=== PATIENT | male | born 1955 | race Caucasian/White ===

== ENCOUNTER 2017-09-15 15:54 | Inpatient (IN) | payer MEDICARE ==
[2017-09-15] MEDS ORDERED: MORPHINE SULFATE 5 MG/ML SYRINGE IV STA (16:32)
[2017-09-15] MEDS ORDERED: SODIUM CHLORIDE 0.9% 1,000 ML IV STA (16:32)
--- NOTE | 2017-09-15 17:00 | ED ---
General Adult HPI - General Chief complaint: Abdominal Pain Stated complaint: POSS KIDNEY STONE/INFECTION Time Seen by Provider: 09/15/17 16:05 Source: patient, RN notes reviewed, old records reviewed Mode of arrival: EMS Limitations: no limitations - History of Present Illness Initial comments: 61-year-old male presented for evaluation of bilateral flank pain and testicular pain. Patient has remote history of kidney stones. As well as testicular infection approximately one year ago. patient does report some dysuria and hematuria over the past several days. He is also had some subjective fever and chills. Denies any change in his bowels. Denies nausea or vomiting. Pain in his flanks is dull aching constant pain which is bilateral. Patient denies any current chest pain or shortness of breath. He has had intermittent chest tightness in the past which his primary care physician is aware of. - Related Data Home Medications Medication Instructions Recorded Confirmed Acetaminophen-Codeine 300-30mg 1 tab PO Q8H PRN 09/15/17 09/15/17 [Tylenol #3] Cholecalciferol [Vitamin D3] 1,000 unit PO DAILY 09/15/17 09/15/17 Enalapril Maleate [Vasotec] 10 mg PO DAILY 09/15/17 09/15/17 Furosemide [Lasix] 40 mg PO DAILY 09/15/17 09/15/17 Minoxidil [Loniten] 2.5 mg PO DAILY 09/15/17 09/15/17 Multivitamins, Thera [Multivitamin 1 tab PO DAILY 09/15/17 09/15/17 (formulary)] cloNIDine HCL [Catapres] 0.1 mg PO DAILY 09/15/17 09/15/17 hydrALAZINE HCL [Apresoline] 25 mg PO DAILY 09/15/17 09/15/17 traMADol HCL [Ultram] 50 mg PO Q6H PRN 09/15/17 09/15/17 Allergies Allergy/AdvReac Type Severity Reaction Status Date / Time ANGEL LUIS Inhibitors Allergy Unknown Verified 09/15/17 16:24 naproxen [From Naprosyn] Allergy Unknown Verified 09/15/17 16:24 Penicillins Allergy Unknown Verified 09/15/17 16:24 ibuprofen [From Motrin] AdvReac Unknown Verified 09/15/17 16:24 Review of Systems ROS Statement: Those systems with pertinent positive or pertinent negative responses have been documented in the HPI. ROS Other: All systems not noted in ROS Statement are negative. Past Medical History Past Medical History: Hypertension Additional Past Medical History / Comment(s): kidney stones History of Any Multi-Drug Resistant Organisms: None Reported Past Surgical History: Hernia Repair, Orthopedic Surgery Past Psychological History: No Psychological Hx Reported Smoking Status: Current every day smoker Past Alcohol Use History: None Reported Past Drug Use History: None Reported General Exam Limitations: no limitations General appearance: alert, in no apparent distress Head exam: Present: atraumatic, normocephalic Eye exam: Present: normal appearance, PERRL ENT exam: Present: mucous membranes dry Neck exam: Present: normal inspection. Absent: tenderness, meningismus Respiratory exam: Present: normal lung sounds bilaterally. Absent: respiratory distress, wheezes Cardiovascular Exam: Present: regular rate, normal rhythm GI/Abdominal exam: Present: soft. Absent: distended, tenderness exam: Present: testicular tenderness (left testicle is swollen and tender and erythematous), scrotal swelling, vertical testicular lie Extremities exam: Present: normal inspection, normal capillary refill. Absent: pedal edema Back exam: Present: CVA tenderness (R), CVA tenderness (L) Neurological exam: Present: alert, oriented X3, CN II-XII intact. Absent: motor sensory deficit Psychiatric exam: Present: normal affect, normal mood Skin exam: Present: warm, dry, intact. Absent: cyanosis, diaphoretic Course Vital Signs 09/15/17 09/15/17 09/15/17 16:00 18:27 19:30 Temperature 98.9 F 103.1 F H 102.5 F H Pulse Rate 81 111 H 116 H Respiratory 20 22 20 Rate Blood Pressure 119/69 146/79 165/52 O2 Sat by Pulse 99 96 99 Oximetry EKG Findings - EKG Comments: EKG Findings:: EKG shows sinus tachycardia with PVCs, left atrial enlargement, low voltage QRS, ventricular rate 104, P or 132, castration 100, QTC 473, no signs of acute ischemia or infarction Medical Decision Making - Medical Decision Making 61-year-old male presenting with bilateral flank pain and left testicular pain and swelling. Laboratory studies reveal a large elevation in white blood cell count at 24.7, hemoglobin is normal at 15.2, nitrites the normal limits. Urinalysis shows large leukocyte esterase, 29 RBCs, greater than 182 WBCs with few bacteria.patient received computed tomography scan of the abdomen and pelvis, shows inflammation surrounding the bladder ureters and the collecting portion of the kidney. Ultrasound is obtained of his scrotum which shows left epididymal orchitis. CT also shows calcifications in the coronary arteries. Patient is febrile and tachycardic while emergency department. He is started on Levaquin. Urine culture is pending. Patient will be admitted for continued IV hydration and IV antibiotics. Case discussed with Dr. Tejeda, he will accept admission. Consult placed for infectious disease. Diagnosis: Cystitis, pyelonephritis, orchitis. - Lab Data Result diagrams: 09/15/17 16:40 09/15/17 16:40 Lab Results 09/15/17 09/15/17 09/15/17 Range/Units 16:40 16:40 16:40 WBC 24.7 H (3.8-10.6) k/uL RBC 5.18 (4.30-5.90) m/uL Hgb 15.2 (13.0-17.5) gm/dL Hct 46.5 (39.0-53.0) % MCV 89.8 (80.0-100.0) fL MCH 29.4 (25.0-35.0) pg MCHC 32.7 (31.0-37.0) g/dL RDW 14.6 (11.5-15.5) % Plt Count 309 (150-450) k/uL Neutrophils % 86 % Lymphocytes % 7 % Monocytes % 5 % Eosinophils % 1 % Basophils % 0 % Neutrophils # 21.2 H (1.3-7.7) k/uL Lymphocytes # 1.7 (1.0-4.8) k/uL Monocytes # 1.3 H (0-1.0) k/uL Eosinophils # 0.2 (0-0.7) k/uL Basophils # 0.0 (0-0.2) k/uL PT (9.0-12.0) sec INR (<1.2) APTT (22.0-30.0) sec Sodium 141 (137-145) mmol/L Potassium 3.9 (3.5-5.1) mmol/L Chloride 103 (98-107) mmol/L Carbon Dioxide 26 (22-30) mmol/L Anion Gap 12 mmol/L BUN 8 L (9-20) mg/dL Creatinine 0.83 (0.66-1.25) mg/dL Est GFR (MDRD) Af Amer >60 (>60 ml/min/1.73 sqM) Est GFR (MDRD) Non-Af >60 (>60 ml/min/1.73 sqM) Glucose 115 H (74-99) mg/dL Plasma Lactic Acid Reji 1.9 (0.7-2.0) mmol/L Calcium 9.7 (8.4-10.2) mg/dL Total Bilirubin 1.1 (0.2-1.3) mg/dL AST 20 (17-59) U/L ALT 30 (21-72) U/L Alkaline Phosphatase 85 (38-126) U/L Troponin I (0.000-0.034) ng/mL Total Protein 7.4 (6.3-8.2) g/dL Albumin 4.3 (3.5-5.0) g/dL Amylase 57 (30-110) U/L Lipase 66 (23-300) U/L Urine Color Urine Appearance (Clear) Urine pH (5.0-8.0) Ur Specific [place] (1.001-1.035) Urine Protein (Negative) Urine Glucose (UA) (Negative) Urine Ketones (Negative) Urine Blood (Negative) Urine Nitrite (Negative) Urine Bilirubin (Negative) Urine Urobilinogen (<2.0) mg/dL Ur Leukocyte Esterase (Negative) Urine RBC (0-5) /hpf Urine WBC (0-5) /hpf Urine WBC Clumps (None) /hpf Urine Bacteria (None) /hpf Urine Mucus (None) /hpf Urine Yeast (Budding) (None) /hpf 09/15/17 09/15/17 09/15/17 Range/Units 16:40 16:40 16:40 WBC (3.8-10.6) k/uL RBC (4.30-5.90) m/uL Hgb (13.0-17.5) gm/dL Hct (39.0-53.0) % MCV (80.0-100.0) fL MCH (25.0-35.0) pg MCHC (31.0-37.0) g/dL RDW (11.5-15.5) % Plt Count (150-450) k/uL Neutrophils % % Lymphocytes % % Monocytes % % Eosinophils % % Basophils % % Neutrophils # (1.3-7.7) k/uL Lymphocytes # (1.0-4.8) k/uL Monocytes # (0-1.0) k/uL Eosinophils # (0-0.7) k/uL Basophils # (0-0.2) k/uL PT 10.1 (9.0-12.0) sec INR 1.0 (<1.2) APTT 25.1 (22.0-30.0) sec Sodium (137-145) mmol/L Potassium (3.5-5.1) mmol/L Chloride (98-107) mmol/L Carbon Dioxide (22-30) mmol/L Anion Gap mmol/L BUN (9-20) mg/dL Creatinine (0.66-1.25) mg/dL Est GFR (MDRD) Af Amer (>60 ml/min/1.73 sqM) Est GFR (MDRD) Non-Af (>60 ml/min/1.73 sqM) Glucose (74-99) mg/dL Plasma Lactic Acid Reji (0.7-2.0) mmol/L Calcium (8.4-10.2) mg/dL Total Bilirubin (0.2-1.3) mg/dL AST (17-59) U/L ALT (21-72) U/L Alkaline Phosphatase (38-126) U/L Troponin I 0.014 (0.000-0.034) ng/mL Total Protein (6.3-8.2) g/dL Albumin (3.5-5.0) g/dL Amylase (30-110) U/L Lipase (23-300) U/L Urine Color Yellow Urine Appearance Turbid (Clear) Urine pH 6.5 (5.0-8.0) Ur Specific [place] 1.016 (1.001-1.035) Urine Protein 2+ H (Negative) Urine Glucose (UA) Negative (Negative) Urine Ketones Negative (Negative) Urine Blood Moderate H (Negative) Urine Nitrite Positive (Negative) Urine Bilirubin Negative (Negative) Urine Urobilinogen <2.0 (<2.0) mg/dL Ur Leukocyte Esterase Large H (Negative) Urine RBC 29 H (0-5) /hpf Urine WBC >182 H (0-5) /hpf Urine WBC Clumps Many H (None) /hpf Urine Bacteria Few H (None) /hpf Urine Mucus Many H (None) /hpf Urine Yeast (Budding) Few H (None) /hpf Disposition Clinical Impression: Orchitis, epididymitis, and epididymo-orchitis, Pyelonephritis Disposition: ADMITTED IP TO THIS [facility] Condition: Stable Decision to Admit Reason: Admit from EC Decision Date: 09/15/17 Decision Time: 18:44
[2017-09-15 17:09] LABS: Basophils % (A) 0 %; Eosinophils # (A) 0.2 k/uL (0-0.7); Eosinophils % (A) 1 %; HCT 46.5 % (39.0-53.0); HGB 15.2 gm/dL (13.0-17.5); Lymphocytes # (A) 1.7 k/uL (1.0-4.8); Lymphocytes % (A) 7 %; MCH 29.4 pg (25.0-35.0); MCHC 32.7 g/dL (31.0-37.0); MCV 89.8 fL (80.0-100.0); Mean Platelet Volume 8.3; Monocytes # (A) 1.3 k/uL (0-1.0); Monocytes % (A) 5 %; Neutrophils # (A) 21.2 k/uL (1.3-7.7); Neutrophils % (A) 86 %; Platelet Count 309 k/uL (150-450); RBC 5.18 m/uL (4.30-5.90); RDW 14.6 % (11.5-15.5); WBC 24.7 k/uL (3.8-10.6)
[2017-09-15 17:14] LABS: Appearance,Urine Turbid (Clear); Bacteria,Urine Few /hpf; Bilirubin,Urine Negative (Negative); Blood,Urine Moderate (Negative); Budding Yeast,Urine Few /hpf; Color,Urine Yellow; Glucose,Urine (UA) Negative (Negative); Ketones,Urine Negative (Negative); Leukocyte Esterase,Urine Large (Negative); Mucus,Urine Many /hpf; Nitrite,Urine Positive (Negative); PH, Urine 6.5 (5.0-8.0); Partial Thromboplastin Time 25.1 sec (22.0-30.0); Protein,Urine 2+ (Negative); Prothrombin Time 10.1 sec (9.0-12.0); RBC,Urine 29 /hpf (0-5); Specific Gravity,Urine 1.016 (1.001-1.035); Urobilinogen,Urine <2.0 mg/dL (<2.0); WBC,Urine >182 /hpf (0-5)
[2017-09-15 17:17] LABS: ALT 30 U/L (21-72); AST 20 U/L (17-59); Albumin 4.3 g/dL (3.5-5.0); Alkaline Phosphatase 85 U/L (38-126); Amylase 57 U/L (30-110); Anion Gap 12 mmol/L; Blood Urea Nitrogen 8 mg/dL (9-20); Calcium 9.7 mg/dL (8.4-10.2); Carbon Dioxide 26 mmol/L (22-30); Chloride 103 mmol/L (98-107); Glucose 115 mg/dL (74-99); Lipase 66 U/L (23-300); Potassium 3.9 mmol/L (3.5-5.1); Sodium 141 mmol/L (137-145); Total Bilirubin 1.1 mg/dL (0.2-1.3); Total Protein 7.4 g/dL (6.3-8.2)
[2017-09-15] MEDS ORDERED: LEVOFLOXACIN 500MG-D5W PMX 500 MG in DEXTROSE/WATER 1 100ML.BAG IVPB STA (18:07)
[2017-09-15] MEDS ORDERED: SODIUM CHLORIDE 0.9% 500 ML IV ONE (18:08)
--- NOTE | 2017-09-15 18:14 | CT ---
EXAMINATION TYPE: CT abdomen pelvis wo con DATE OF EXAM: 09/15/2017 COMPARISON: NONE HISTORY: Generalized abdominal pain with left testicular swelling. CT DLP: 915.00 mGycm Automated exposure control for dose reduction was used. TECHNIQUE: Helical acquisition of images was performed from the lung bases through the pelvis. FINDINGS: LUNG BASES: Coronary calcifications are noted. Remainder the visualized thorax is unremarkable. LIVER/GB: No significant abnormality is appreciated. PANCREAS: No significant abnormality is seen. SPLEEN: No significant abnormality is seen. FREE AIR: No free air is visualized RETROPERITONEAL ADENOPATHY: None visualized ADRENALS: No significant abnormality is seen. KIDNEYS: No significant abnormality is seen. There are no calcifications in the kidneys or ureters or urinary bladder. URINARY TRACT: Bladder is nondistended. There is widespread indistinctness at the interface of the b ladder with the perivesical space. There is also indistinctness in the periureteral position of the p erirenal space extending cephalad all the way to the collecting system on the right and on the left s ymmetrically. The remainder of the urinary tract is unremarkable. REPRODUCTIVE ORGANS: The left scrotum is larger than the contralateral right scrotum. The testicles a ppear similar in volume, but the left extratesticular examination shows evidence of hydrocele; if lef t scrotal pain is present then Doppler ultrasound examination can fully characterize. PELVIC ADENOPATHY: None visualized. OSSEOUS STRUCTURES: No significant abnormality is seen. BOWEL: No significant abnormality is seen. IMPRESSION: 1. MILD INFLAMMATORY CHANGES SURROUNDING THE BLADDER AND URETERS AND UPPER COLLECTING SYSTEMS BILATER ALLY AND RATHER SYMMETRICALLY. CLINICAL EXCLUSION OF URINARY TRACT INFECTION IS REQUESTED. 2. Left Hydrocele Evident. 3. Coronary Calcifications Noted.
--- NOTE | 2017-09-15 18:31 | US ---
EXAMINATION TYPE: US scrotum with doppler. Grayscale and color Doppler Duplex imaging performed of yakelin cartwright scrotum. DATE OF EXAM: 09/15/2017 COMPARISON: NONE CLINICAL HISTORY: Pain. edema left side EXAM MEASUREMENTS: TESTICLES: Right Testicle: 4.6 x 2.3 x 3.5 cm Left Testicle: 4.6 x 2.8 x 3.2 cm EPIDIDYMIS HEAD: Right Epididymis: .8 x 1.0 x .8 cm Left Epididymis: 1.0 x 1.2 x .8 cm Doppler performed to assess for testicular vascularity; good bilateral color flow and waveforms are s een. There is no evidence of testicular torsion. Presence of hydroceles: Yes left side; anechoic; with septations seen Presence of varicoceles: no Septated fluid and increased vascularity in left testicle and epididymis. Suggestive of epididymo orc hitis. IMPRESSION: FINDINGS CONSISTENT WITH LEFT EPIDIDYMAL-ORCHITIS, WITH SMALL PARTIALLY SEPTATED HYDROCELE..
[2017-09-15] MEDS ORDERED: ACETAMINOPHEN TAB 500 MG TAB PO STA (18:33)
[2017-09-15] MEDS ORDERED: ACETAMINOPHEN IV (For NPO) 1,000 MG in EMPTY BAG 1 BAG IVPB ONE (18:39)
[2017-09-15] MEDS ORDERED: MORPHINE SULFATE 5 MG/ML SYRINGE IVP STA (18:45)
[2017-09-15] MEDS ORDERED: NALOXONE 0.4 MG/ML 1 ML VIAL IV PRN (18:56)
[2017-09-15] MEDS: NICOTINE 21MG/24HR PATCH TRANSDERM SCH (22:04)
[2017-09-15] MEDS: ACETAMINOPHEN TAB 325 MG TAB PO PRN (22:09)
[2017-09-16] MEDS: HYDROmorphone 2 MG/ML 1 ML SYRINGE IVP PRN ×4 (01:08→20:13)
[2017-09-16] MEDS: cloNIDine HCL 0.1 MG TAB PO SCH (07:56)
[2017-09-16] MEDS: NICOTINE 21MG/24HR PATCH TRANSDERM SCH (07:56)
[2017-09-16] MEDS: FUROSEMIDE 40 MG TAB PO SCH (08:06)
[2017-09-16 09:23] LABS: ALT 27 U/L (21-72); AST 17 U/L (17-59); Albumin 3.5 g/dL (3.5-5.0); Alkaline Phosphatase 74 U/L (38-126); Anion Gap 10 mmol/L; Blood Urea Nitrogen 10 mg/dL (9-20); Calcium 9.2 mg/dL (8.4-10.2); Carbon Dioxide 23 mmol/L (22-30); Chloride 106 mmol/L (98-107); Glucose 105 mg/dL (74-99); Magnesium 2.1 mg/dL (1.6-2.3); Potassium 3.9 mmol/L (3.5-5.1); Sodium 139 mmol/L (137-145); Total Bilirubin 1.2 mg/dL (0.2-1.3); Total Protein 6.4 g/dL (6.3-8.2)
[2017-09-16 09:36] LABS: Basophils # (A) 0.1 k/uL (0-0.2); Basophils % (A) 0 %; Eosinophils # (A) 0.1 k/uL (0-0.7); Eosinophils % (A) 0 %; HCT 40.5 % (39.0-53.0); HGB 13.4 gm/dL (13.0-17.5); Lymphocytes # (A) 2.1 k/uL (1.0-4.8); Lymphocytes % (A) 8 %; MCH 29.8 pg (25.0-35.0); MCV 90.4 fL (80.0-100.0); Mean Platelet Volume 8.4; Monocytes # (A) 1.5 k/uL (0-1.0); Monocytes % (A) 6 %; Neutrophils # (A) 22.5 k/uL (1.3-7.7); Neutrophils % (A) 85 %; Platelet Count 287 k/uL (150-450); RBC 4.48 m/uL (4.30-5.90)
[2017-09-16 10:11] LABS: WBC 26.4 k/uL (3.8-10.6)
[2017-09-16] MEDS ORDERED: Acetaminophen-Codeine 300-30mg TAB PO PRN (10:52)
[2017-09-16] MEDS ORDERED: traMADol 50 MG TAB PO PRN (10:52)
--- NOTE | 2017-09-16 12:19 | P.CONS ---
History of Present Illness - Reason for Consult Consult date: 09/16/17 Sepsis, pyelonephritis, orchitis - History of Present Illness This is a 61-year-old male patient gives history that he had developed dysuria, hematuria and pain in his testicles along with decreased appetite, fever, chills and rigors. He gives history that he had swollen testicles last summer and he was treated by his primary care physician and was placed on initially penicillin which she was not able to tolerate, a second antibiotic which she was not able to tolerate and ended up with 2 courses of ciprofloxacin. Patient was not hospitalized at that time. Patient came into [facility] emergency center and found to have signs of sepsis with fever, tachycardia, leukocytosis. Creatinine was 0.83. Urinalysis was turbid, blood moderate, leukoesterase large, RBCs 29, WBC is greater than 182, WBC clumps many, bacteria few, yeast few. Urine culture is in process and blood culture is status received. Patient was started on Levaquin and [facility]. He states that blood and dysuria are slightly better and he was concerned that he passed a stone. He does have remote history of kidney stones. Ultrasound of the scrotum revealed left epididymal orchitis with small partially septated hydrocele. CAT scan revealed mild inflammatory changes surrounding the bladder and ureters and upper collection systems bilaterally and symmetrically. Clinical exclusion of urinary tract infection is requested. Left hydrocele evident. Coronary calcification noted. Review of Systems All systems: negative Constitutional: Reports anorexia, Reports chills, Reports fatigue, Reports fever , Reports poor appetite, Reports sweats Eyes: denies blurred vision, denies pain Ears, nose, mouth and throat: Denies dental pain, Denies headache, Denies mouth pain, Denies sore throat Cardiovascular: Denies chest pain, Denies decreased exercise tolerance, Denies dyspnea on exertion, Denies edema, Denies leg edema, Denies shortness of breath Respiratory: Denies congestion, Denies cough, Denies cough with sputum, Denies dyspnea, Denies excessive sputum, Denies hemoptysis, Denies home oxygen, Denies wheezing Gastrointestinal: Denies abdominal pain, Denies diarrhea, Denies nausea, Denies vomiting Genitourinary: Reports dysuria, Reports flank pain, Reports hematuria, Reports kidney stones, Reports testicular pain Musculoskeletal: Denies myalgias Integumentary: Denies pruritus, Denies rash Neurological: Denies numbness, Denies weakness Psychiatric: Denies anxiety, Denies depression Endocrine: Denies fatigue, Denies weight change Past Medical History Past Medical History: Hypertension Additional Past Medical History / Comment(s): kidney stones History of Any Multi-Drug Resistant Organisms: None Reported Past Surgical History: Hernia Repair, Orthopedic Surgery Additional Past Surgical History / Comment(s): neck surgery x3 Past Anesthesia/Blood Transfusion Reactions: No Reported Reaction Past Psychological History: No Psychological Hx Reported Smoking Status: Current every day smoker Past Alcohol Use History: None Reported Additional Past Alcohol Use History / Comment(s): Patient is a smoker of 2-3 packs per day for 40 years. He denies any recent marijuana, medical marijuana or street drug use. He denies any alcohol use or abuse. He is currently living alone. He is on disability from a neck problems. 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 Past Drug Use History: None Reported - Past Family History Mother Family Medical History: Congestive Heart Failure (CHF) Medications and Allergies Home Medications Medication Instructions Recorded Confirmed Type Acetaminophen-Codeine 300-30mg 1 tab PO Q8H PRN 09/15/17 09/15/17 History [Tylenol #3] Cholecalciferol [Vitamin D3] 1,000 unit PO DAILY 09/15/17 09/15/17 History Enalapril Maleate [Vasotec] 10 mg PO DAILY 09/15/17 09/15/17 History Furosemide [Lasix] 40 mg PO DAILY 09/15/17 09/15/17 History Minoxidil [Loniten] 2.5 mg PO DAILY 09/15/17 09/15/17 History Multivitamins, Thera [Multivitamin 1 tab PO DAILY 09/15/17 09/15/17 History (formulary)] cloNIDine HCL [Catapres] 0.1 mg PO DAILY 09/15/17 09/15/17 History hydrALAZINE HCL [Apresoline] 25 mg PO DAILY 09/15/17 09/15/17 History traMADol HCL [Ultram] 50 mg PO Q6H PRN 09/15/17 09/15/17 History Allergies Allergy/AdvReac Type Severity Reaction Status Date / Time ANGEL LUIS Inhibitors Allergy Unknown Verified 09/15/17 16:24 naproxen [From Naprosyn] Allergy Unknown Verified 09/15/17 16:24 Penicillins Allergy Unknown Verified 09/15/17 16:24 ibuprofen [From Motrin] AdvReac Unknown Verified 09/15/17 16:24 Physical Exam Vitals: Vital Signs Temp Pulse Pulse Resp BP BP Pulse Ox 09/16/17 07:00 97.7 F 88 18 116/76 97 09/15/17 23:00 101.6 F H 89 16 115/60 93 L 09/15/17 22:09 101.6 F H 09/15/17 20:10 97.8 F 90 16 114/62 94 L 09/15/17 19:30 102.5 F H 116 H 20 165/52 99 09/15/17 18:27 103.1 F H 111 H 22 146/79 96 09/15/17 16:00 98.9 F 81 20 119/69 99 Intake and Output 09/15/17 09/16/17 09/16/17 22:59 06:59 14:59 Output Total 100 Balance -100 Output: Urine 100 Other: Voiding Method Incontinent # Voids 1 3 Weight 78.925 kg Gen: This is a 61-year-old male patient who looks older than stated age. He is sitting up at the edge of the bed and eating breakfast and appears to be in no acute distress. HEENT: Head is atraumatic, normocephalic. Pupils equal, round. Sclerae is anicteric. Conjunctiva pink. Mucous membranes of the mouth are moist. Patient is near edentulous with only a few teeth. No thrush noted. NECK: Supple. No JVD. No lymphadenopathy. No thyromegaly. LUNGS: Scattered rhonchi. No wheezes. No intercostal retractions. HEART: Regular rate and rhythm. No murmur. ABDOMEN: Soft. Bowel sounds are present. No masses. No tenderness. EXTREMITIES: Trace bilateral pedal edema. No calf tenderness. Dorsalis pedis + 2 bilaterally. NEUROLOGICAL: Patient is awake, alert and oriented x3. Cranial nerves 2 through 12 are grossly intact. Results Results: Laboratory Results WBC 26.4 k/uL (3.8-10.6) H* 09/16/17 08:32 RBC 4.48 m/uL (4.30-5.90) 09/16/17 08:32 Hgb 13.4 gm/dL (13.0-17.5) 09/16/17 08:32 Hct 40.5 % (39.0-53.0) 09/16/17 08:32 MCV 90.4 fL (80.0-100.0) 09/16/17 08:32 MCH 29.8 pg (25.0-35.0) 09/16/17 08:32 MCHC 33.0 g/dL (31.0-37.0) 09/16/17 08:32 RDW 13.0 % (11.5-15.5) 09/16/17 08:32 Plt Count 287 k/uL (150-450) 09/16/17 08:32 Neutrophils % 85 % 09/16/17 08:32 Lymphocytes % 8 % 09/16/17 08:32 Monocytes % 6 % 09/16/17 08:32 Eosinophils % 0 % 09/16/17 08:32 Basophils % 0 % 09/16/17 08:32 Neutrophils # 22.5 k/uL (1.3-7.7) H 09/16/17 08:32 Lymphocytes # 2.1 k/uL (1.0-4.8) 09/16/17 08:32 Monocytes # 1.5 k/uL (0-1.0) H 09/16/17 08:32 Eosinophils # 0.1 k/uL (0-0.7) 09/16/17 08:32 Basophils # 0.1 k/uL (0-0.2) 09/16/17 08:32 PT 10.1 sec (9.0-12.0) 09/15/17 16:40 INR 1.0 (<1.2) 09/15/17 16:40 APTT 25.1 sec (22.0-30.0) 09/15/17 16:40 Sodium 139 mmol/L (137-145) 09/16/17 08:32 Potassium 3.9 mmol/L (3.5-5.1) 09/16/17 08:32 Chloride 106 mmol/L (98-107) 09/16/17 08:32 Carbon Dioxide 23 mmol/L (22-30) 09/16/17 08:32 Anion Gap 10 mmol/L 09/16/17 08:32 BUN 10 mg/dL (9-20) 09/16/17 08:32 Creatinine 0.71 mg/dL (0.66-1.25) 09/16/17 08:32 Est GFR (MDRD) Af Amer >60 (>60 ml/min/1.73 sqM) 09/16/17 08:32 Est GFR (MDRD) Non-Af >60 (>60 ml/min/1.73 sqM) 09/16/17 08:32 Glucose 105 mg/dL (74-99) H 09/16/17 08:32 Plasma Lactic Acid Reji 1.5 mmol/L (0.7-2.0) 09/15/17 20:51 Calcium 9.2 mg/dL (8.4-10.2) 09/16/17 08:32 Magnesium 2.1 mg/dL (1.6-2.3) 09/16/17 08:32 Total Bilirubin 1.2 mg/dL (0.2-1.3) 09/16/17 08:32 AST 17 U/L (17-59) 09/16/17 08:32 ALT 27 U/L (21-72) 09/16/17 08:32 Alkaline Phosphatase 74 U/L (38-126) 09/16/17 08:32 Troponin I 0.014 ng/mL (0.000-0.034) 09/15/17 16:40 Total Protein 6.4 g/dL (6.3-8.2) 09/16/17 08:32 Albumin 3.5 g/dL (3.5-5.0) 09/16/17 08:32 Amylase 57 U/L (30-110) 09/15/17 16:40 Lipase 66 U/L (23-300) 09/15/17 16:40 Urine Color Yellow 09/15/17 16:40 Urine Appearance Turbid (Clear) 09/15/17 16:40 Urine pH 6.5 (5.0-8.0) 09/15/17 16:40 Ur Specific [place] 1.016 (1.001-1.035) 09/15/17 16:40 Urine Protein 2+ (Negative) H 09/15/17 16:40 Urine Glucose (UA) Negative (Negative) 09/15/17 16:40 Urine Ketones Negative (Negative) 09/15/17 16:40 Urine Blood Moderate (Negative) H 09/15/17 16:40 Urine Nitrite Positive (Negative) 09/15/17 16:40 Urine Bilirubin Negative (Negative) 09/15/17 16:40 Urine Urobilinogen <2.0 mg/dL (<2.0) 09/15/17 16:40 Ur Leukocyte Esterase Large (Negative) H 09/15/17 16:40 Urine RBC 29 /hpf (0-5) H 09/15/17 16:40 Urine WBC >182 /hpf (0-5) H 09/15/17 16:40 Urine WBC Clumps Many /hpf (None) H 09/15/17 16:40 Urine Bacteria Few /hpf (None) H 09/15/17 16:40 Urine Mucus Many /hpf (None) H 09/15/17 16:40 Urine Yeast (Budding) Few /hpf (None) H 09/15/17 16:40 CBC & Chem 7: 09/16/17 08:32 09/16/17 08:32 Labs: Abnormal Lab Results - Last 24 Hours (Table) 09/15/17 09/15/17 09/15/17 Range/Units 16:40 16:40 16:40 WBC 24.7 H (3.8-10.6) k/uL Neutrophils # 21.2 H (1.3-7.7) k/uL Monocytes # 1.3 H (0-1.0) k/uL BUN 8 L (9-20) mg/dL Glucose 115 H (74-99) mg/dL Urine Protein 2+ H (Negative) Urine Blood Moderate H (Negative) Ur Leukocyte Esterase Large H (Negative) Urine RBC 29 H (0-5) /hpf Urine WBC >182 H (0-5) /hpf Urine WBC Clumps Many H (None) /hpf Urine Bacteria Few H (None) /hpf Urine Mucus Many H (None) /hpf Urine Yeast (Budding) Few H (None) /hpf Microbiology - Last 24 Hours (Table) 09/15/17 16:40 Urine Culture - Preliminary Urine,Clean Catch Assessment and Plan Plan: This is a 61-year-old male who presented to the hospital with sepsis secondary to left epididymal orchitis. He is currently on Levaquin which will be switched to Rocephin. Urine culture is in progress and blood cultures status received. Continue supportive care. Further recommendations as patient progresses. The above dictated assessment and findings were discussed with Dr. Harper. The impression and plan of care have been directed as dictated. Margie Laguna nurse practitioner acting as scribe for Dr. Harper.
[2017-09-16] MEDS: cefTRIAXone IN SWFI 2,000 MG/20 ML SYRINGE IVP SCH (12:22)
[2017-09-16] MEDS: SODIUM CHLORIDE 0.9% 1,000 ML IV SCH ×2 (12:23→15:49)
[2017-09-16] MEDS: KETOROLAC 30 MG/ML 1 ML VIAL IVP SCH ×2 (15:48→20:11)
--- NOTE | 2017-09-16 15:52 | HP ---
HISTORY AND PHYSICAL CHIEF COMPLAINT: Fever, shaking, chills, and diaphoresis. HISTORY OF PRESENT ILLNESS: This is the first known admission for this 61-year-old, white male who has hypertension and is a heavy smoker. Going back to May 03, 2017 he has been being treated for pain and swelling in the left testicle. It was thought this was epididymitis and was treated with anti-inflammatories and antibiotics. His initial treatment was Augmentin. He had some improvement in the pain and swelling, but not complete resolution. He came back in the office on May 13 and at that time, was on Cipro from the emergency room. He still is having a lot of swelling and discomfort and very little improvement. He was seen next on May 24 and stated that he had stopped the antibiotics because it gave him stomach pain and diarrhea. Somewhere along that stretch he also received Keflex 500 mg 4 times a day. When he was in on May 24 he requested to go back on Cipro and this was restarted. On May 31 he presented and was having some improvement and was afebrile. It was felt that his epididymitis was improving and he was asked to return in a month. The next time he was seen was on July 06 and was doing well without any complaints, fever, chills, dysuria, etc. On the day of his admission, he suddenly had fever, chills, diaphoresis and increased swelling in the left hemiscrotum with a discomfort in the lower abdomen as well. He came to the emergency room with shaking chills and had white count 24,000. His lactic acid was just below 2. He had no delirium. CT suggested that there was an epididymitis, or abscess in the left hemiscrotum and some edema around the bladder and ureters as well. He was admitted. REVIEW OF SYSTEMS: He has had no confusion, cough, chest pain, orthopnea, PND, nausea vomiting, hematemesis, melena, hematochezia, jaundice, hematuria, history of renal disease, stones, etc. Past medical history, family history, and personal and social history reveal that he is ALLERGIC TO PENICILLIN, ANGEL LUIS inhibitors, NSAIDs and prednisone. He is on [place] 5 q6h p.r.n., Lasix 40 once a day, Ultram 50 q.6h, clonidine 0.1 once a day, hydralazine 25 mg once a day, minoxidil 2.5 mg once a day, enalapril 10 mg once a day. Surgically he has had hemorrhoidectomy, resection of hydrocele, neck procedure, procedure for treatment for left shoulder pain and kidney stones. He has had a herniorrhaphy and a, hydrocelectomy and surgery on his neck for fusion. He smokes heavily up to around 3 packs a day. PHYSICAL EXAM: Blood pressure 170/90 with a pulse of 100, respirations 16 and temperature 101. In general he appeared to be acutely ill. Skin was hot and dry. Lymph nodes not enlarged. Head, ears, eyes, nose, mouth, and throat were normal. NECK: Supple. Chest is clear. Cardiac exam demonstrates sinus tachycardia and there are no murmurs or extra sounds. The abdomen is slightly tender in the lower aspects and on exam general demonstrated a swelling and tenderness in the left hemiscrotum. EXTREMITIES: Normal. Neurological is intact. IMPRESSION: 1. Left epididymitis and orchitis with possible abscess. 2. Early sepsis. 3. Chronic obstructive pulmonary disease. PLAN: 1. Bed rest. 2. IV fluids. 3. Appropriate cultures. 4. IV antibiotics. 5. Consult Infectious Disease and Urology. ADDENDUM: He was asked to leave the urine for culture when he was initially treated for the epididymitis, but none was left. No cultures were done when he was an outpatient. MMODL / IJN: [id number] /
--- NOTE | 2017-09-16 16:49 | PN ---
PROGRESS NOTE DATE OF SERVICE: 09/16/2017 CHIEF COMPLAINT: Urinary tract infection and probable abscess with left epididymitis. HISTORY OF PRESENT ILLNESS: This gentleman is doing a little bit better than when he came in, but he is still having a lot of pain and swelling. PHYSICAL EXAMINATION: Temperature is down. Chest is clear. Cardiac exam is normal. The abdomen is soft, nontender. IMPRESSION: 1. Septicemia. 2. Left-sided epididymitis. 3. Chronic obstructive pulmonary disease. 4. Hypertension. PLAN: 1. Continue with IV fluids and antibiotics. 2. Obtain appropriate cultures. 3. Consult with Urology and Infectious Disease. MMODL / IJN: [id number] /
[2017-09-16] MEDS ORDERED: LEVOFLOXACIN 750MG-D5W PMX 750 MG in DEXTROSE/WATER 1 150ML.BAG IVPB SCH (19:00)
--- NOTE | 2017-09-16 19:06 | P.GSCN ---
History of Present Illness Consult date: 09/16/17 Reason for Consult: Left epididymitis and sepsis History of present illness: The patient is a 61-year-old male admitted through the emergency room yesterday for evaluation of left testicular and epididymal pain and swelling and a fever. The patient says that his problem actually began approximately 2 weeks ago when he first had some intermittent bilateral testicular discomfort. His right testicular discomfort resolved. He says that he developed terminal dysuria associated with a fever chills and left testicular discomfort on 09/11. The swelling continued and due to his fever he came to the emergency room for evaluation. He was noted have a white blood count of 24,700. Urinalysis suggested a urinary tract infection and the patient has been started on antibiotics. Computed tomography scan of the abdomen and pelvis showed some questionable induration in the retroperitoneum adjacent to the ureters but no definite evidence of hydronephrosis. Scrotal ultrasound showed increased vascularity of the left epididymis consistent with acute epididymitis. The patient says that he feels much better today since he has been started on antibiotics. He was initially started on Levaquin and then switched to ceftriaxone. The patient said that he was treated for left epididymitis during April and May 2017. According to Dr. Tejeda's note he was treated with both Augmentin and Cipro. It's unclear whether a urine culture was obtained at that time. Patient has no other history of urinary tract infection. He says he voids frequently after he takes his Lasix in the morning and then every 2-4 hours. He usually voids once or twice at night but says that this has been present for years. Of possible significance, the patient says that after he takes his Lasix he has such urgency to void but he often squeezes the end of his penis to prevent voiding when that happens his urethra distends with urine. Review of Systems - Constitutional Reports chills, Reports fever - Cardiovascular Denies chest pain, Denies shortness of breath - Respiratory Denies cough - Gastrointestinal Denies abdominal pain - Genitourinary Reports as per HPI Past Medical History Past Medical History: COPD, Hypertension Additional Past Medical History / Comment(s): kidney stones History of Any Multi-Drug Resistant Organisms: None Reported Past Surgical History: Orthopedic Surgery Additional Past Surgical History / Comment(s): neck surgery x3, right hydrocele repair Past Anesthesia/Blood Transfusion Reactions: No Reported Reaction Past Psychological History: No Psychological Hx Reported Smoking Status: Current every day smoker Past Alcohol Use History: None Reported Additional Past Alcohol Use History / Comment(s): Patient is a smoker of 2-3 packs per day for 40 years. He denies any recent marijuana, medical marijuana or street drug use. He denies any alcohol use or abuse. He is currently living alone. He is on disability from a neck problems. 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 Past Drug Use History: None Reported - Past Family History Mother Family Medical History: Congestive Heart Failure (CHF) Medications and Allergies Home Medications Medication Instructions Recorded Confirmed Type Acetaminophen-Codeine 300-30mg 1 tab PO Q8H PRN 09/15/17 09/15/17 History [Tylenol #3] Cholecalciferol [Vitamin D3] 1,000 unit PO DAILY 09/15/17 09/15/17 History Enalapril Maleate [Vasotec] 10 mg PO DAILY 09/15/17 09/15/17 History Furosemide [Lasix] 40 mg PO DAILY 09/15/17 09/15/17 History Minoxidil [Loniten] 2.5 mg PO DAILY 09/15/17 09/15/17 History Multivitamins, Thera [Multivitamin 1 tab PO DAILY 09/15/17 09/15/17 History (formulary)] cloNIDine HCL [Catapres] 0.1 mg PO DAILY 09/15/17 09/15/17 History hydrALAZINE HCL [Apresoline] 25 mg PO DAILY 09/15/17 09/15/17 History traMADol HCL [Ultram] 50 mg PO Q6H PRN 09/15/17 09/15/17 History Allergies Allergy/AdvReac Type Severity Reaction Status Date / Time ANGEL LUIS Inhibitors Allergy Unknown Verified 09/15/17 16:24 naproxen [From Naprosyn] Allergy Unknown Verified 09/15/17 16:24 Penicillins Allergy Unknown Verified 09/15/17 16:24 ibuprofen [From Motrin] AdvReac Unknown Verified 09/15/17 16:24 Surgical - Exam Vital Signs Temp Pulse Resp BP Pulse Ox 98.9 F 81 20 119/69 99 09/15/17 16:00 09/15/17 16:00 09/15/17 16:00 09/15/17 16:00 09/15/17 16:00 - General well developed, well nourished, no distress - Neck no lymphadectomy - Respiratory normal respiratory effort - Abdomen Abdomen: soft, non tender Hernia: no inguinal - Genitourinary normal penis with no external lesions, other (The right testicle and epididymis are normal. The left testicle and epididymis appeared indurated and are moderately tender. There is slight scrotal edema overlying the left testicle but no evidence of fluctuance or skin discoloration.) - Neurologic no memory loss - Psychiatric memory intact Results - Labs 09/16/17 08:32 09/16/17 08:32 Abnormal Lab Results - Last 24 Hours (Table) 09/16/17 09/16/17 Range/Units 08:32 08:32 WBC 26.4 H* (3.8-10.6) k/uL Neutrophils # 22.5 H (1.3-7.7) k/uL Monocytes # 1.5 H (0-1.0) k/uL Glucose 105 H (74-99) mg/dL Microbiology - Last 24 Hours (Table) 09/16/17 12:00 Urine Culture - Preliminary Urine,Voided 09/15/17 16:40 Urine Culture - Preliminary Urine,Clean Catch Diabetes panel 09/16/17 Range/Units 08:32 Sodium 139 (137-145) mmol/L Potassium 3.9 (3.5-5.1) mmol/L Chloride 106 (98-107) mmol/L Carbon Dioxide 23 (22-30) mmol/L BUN 10 (9-20) mg/dL Creatinine 0.71 (0.66-1.25) mg/dL Glucose 105 H (74-99) mg/dL Calcium 9.2 (8.4-10.2) mg/dL AST 17 (17-59) U/L ALT 27 (21-72) U/L Alkaline Phosphatase 74 (38-126) U/L Total Protein 6.4 (6.3-8.2) g/dL Albumin 3.5 (3.5-5.0) g/dL Calcium panel 09/16/17 Range/Units 08:32 Calcium 9.2 (8.4-10.2) mg/dL Albumin 3.5 (3.5-5.0) g/dL Pituitary panel 09/16/17 Range/Units 08:32 Sodium 139 (137-145) mmol/L Potassium 3.9 (3.5-5.1) mmol/L Chloride 106 (98-107) mmol/L Carbon Dioxide 23 (22-30) mmol/L BUN 10 (9-20) mg/dL Creatinine 0.71 (0.66-1.25) mg/dL Glucose 105 H (74-99) mg/dL Calcium 9.2 (8.4-10.2) mg/dL Adrenal panel 09/16/17 Range/Units 08:32 Sodium 139 (137-145) mmol/L Potassium 3.9 (3.5-5.1) mmol/L Chloride 106 (98-107) mmol/L Carbon Dioxide 23 (22-30) mmol/L BUN 10 (9-20) mg/dL Creatinine 0.71 (0.66-1.25) mg/dL Glucose 105 H (74-99) mg/dL Calcium 9.2 (8.4-10.2) mg/dL Total Bilirubin 1.2 (0.2-1.3) mg/dL AST 17 (17-59) U/L ALT 27 (21-72) U/L Alkaline Phosphatase 74 (38-126) U/L Total Protein 6.4 (6.3-8.2) g/dL Albumin 3.5 (3.5-5.0) g/dL Assessment and Plan (1) Orchitis, epididymitis, and epididymo-orchitis Narrative/Plan: The patient appears to have acute left epididymal orchitis. His urinalysis also suggested a urinary tract infection. It is possible that the patient has chronic prostatitis which could be the cause of his relapsing infections. It's also possible that preventing voiding when he gets a strong urge to void after he takes his Lasix by squeezing his glans causes urine to flow retrograde from the prostatic region back towards the left epididymis. I personally reviewed the patient's computed tomography scan and do not feel that the abnormality noted in the retroperitoneum is significant. The patient does not have clinical evidence of acute pyelonephritis. The patient has improved since he has been started on Levaquin and switched to ceftriaxone and is currently afebrile. I believe that he could be treated as an outpatient with oral Levaquin and should be treated for 2 weeks. He has seen Dr. Proctor in the past and should follow up with him in 2 or 3 weeks. Current Visit: Yes Status: Acute Code(s): N45.2 - ORCHITIS; N45.1 - EPIDIDYMITIS; N45.3 - EPIDIDYMO-ORCHITIS SNOMED Code(s): 265264694
--- NOTE | 2017-09-16 23:29 | P.CON ---
Consult Note - . Consult date: 09/16/17 Assessment/Plan:: This is a 61-year-old male patient gives history that he had developed dysuria, hematuria and pain in his testicles along with decreased appetite, fever, chills and rigors. He gives history that he had swollen testicles last summer and he was treated by his primary care physician and was placed on initially penicillin which she was not able to tolerate, a second antibiotic which she was not able to tolerate and ended up with 2 courses of ciprofloxacin. Patient was not hospitalized at that time. Patient came into [facility] emergency center and found to have signs of sepsis with fever, tachycardia, leukocytosis. Creatinine was 0.83. Urinalysis was turbid, blood moderate, leukoesterase large, RBCs 29, WBC is greater than 182, WBC clumps many, bacteria few, yeast few. Urine culture is in process and blood culture is status received. Patient was started on Levaquin and admitted to the [facility] floor. He states that blood and dysuria are slightly better and he was concerned that he passed a stone. He does have remote history of kidney stones. Ultrasound of the scrotum revealed left epididymal orchitis with small partially septated hydrocele. CAT scan revealed mild inflammatory changes surrounding the bladder and ureters and upper collection systems bilaterally and symmetrically. Clinical exclusion of urinary tract infection is requested. Left hydrocele evident. Coronary calcification noted. Please see the consult note as dictated by nurse practitioner Mrs. Margie Laguna. Pleasant gentleman has some difficulties with testicular swelling through the summer. Had multiple courses of antibiotic therapy. Again is now had significant swelling. Patient does have evidence of enlarged prostate and symptoms of BPH. It is likely that he is getting infection into the epididymis related to this issue. For antibiotic therapy ceftriaxone will be utilized with concerns to quinolone resistant infection. Elevation and cooling of the scrotum is helpful. Cultures in process will help direct antibiotic therapy at discharge. Patient feels just a better since coming into hospital. Tamsulosin will be added. Computed tomography scan is reviewed without evidence of acute pyelonephritis. I agree with evaluation, assessment and plan as dictated by nurse practitioner Mrs. Margie Laguna.
[2017-09-17] MEDS: ACETAMINOPHEN TAB 325 MG TAB PO PRN ×2 (00:03→16:51)
[2017-09-17] MEDS: KETOROLAC 30 MG/ML 1 ML VIAL IVP SCH ×5 (00:03→23:51)
[2017-09-17] MEDS: SODIUM CHLORIDE 0.9% 1,000 ML IV SCH ×6 (00:04→21:25)
[2017-09-17] MEDS: cloNIDine HCL 0.1 MG TAB PO SCH (08:25)
[2017-09-17] MEDS: hydrALAZINE HCL 25 MG TAB PO SCH (08:25)
[2017-09-17] MEDS: TAMSULOSIN 0.4 MG CAP.ER.24H PO SCH (08:25)
[2017-09-17] MEDS: LISINOPRIL 20 MG TAB PO SCH (08:25)
[2017-09-17] MEDS: MINOXIDIL 2.5 MG TAB PO SCH (08:25)
[2017-09-17] MEDS: FUROSEMIDE 40 MG TAB PO SCH (08:25)
[2017-09-17] MEDS: NICOTINE 21MG/24HR PATCH TRANSDERM SCH (08:25)
[2017-09-17] MEDS: HYDROmorphone 2 MG/ML 1 ML SYRINGE IVP PRN (10:23)
[2017-09-17] MEDS: cefTRIAXone IN SWFI 2,000 MG/20 ML SYRINGE IVP SCH (13:26)
--- NOTE | 2017-09-17 16:35 | PN ---
PROGRESS NOTE DATE OF SERVICE: 09/17/2017 CHIEF COMPLAINT: Epididymitis and orchitis with UTI. HISTORY OF PRESENT ILLNESS: This gentleman is still having trouble with night sweats, but his temperature is coming down slowly. He has been seen by Urology and Infectious Disease. Antibiotics were changed he is doing a little bit better. PHYSICAL EXAMINATION: He is awake and alert. Vitals signs are normal. His chest is clear. Cardiac exam is normal. The abdomen is soft, nontender. IMPRESSION: Epididymitis and orchitis with pelvic floor cellulitis and benign prostatic hypertrophy. PLAN: No change in program. Continue to monitor his temperature and vital signs. He is growing out Gram-negative organisms. MMODL / IJN: [id number] /
[2017-09-17] MEDS: HYDROmorphone 0.5 MG/0.5 ML SYRINGE IVP PRN (21:25)
--- NOTE | 2017-09-17 22:58 | P.PN ---
Subjective Progress Note Date: 09/17/17 Principal diagnosis: Sepsis, epididymoorchitis This is a 61-year-old male patient gives history that he had developed dysuria, hematuria and pain in his testicles along with decreased appetite, fever, chills and rigors. He gives history that he had swollen testicles last summer and he was treated by his primary care physician and was placed on initially penicillin which she was not able to tolerate, a second antibiotic which she was not able to tolerate and ended up with 2 courses of ciprofloxacin. Patient was not hospitalized at that time. Patient came into [facility] emergency center and found to have signs of sepsis with fever, tachycardia, leukocytosis. Creatinine was 0.83. Urinalysis was turbid, blood moderate, leukoesterase large, RBCs 29, WBC is greater than 182, WBC clumps many, bacteria few, yeast few. Urine culture is in process and blood culture is status received. Patient was started on Levaquin and [facility] He states that blood and dysuria are slightly better and he was concerned that he passed a stone. He does have remote history of kidney stones. Ultrasound of the scrotum revealed left epididymal orchitis with small partially septated hydrocele. CAT scan revealed mild inflammatory changes surrounding the bladder and ureters and upper collection systems bilaterally and symmetrically. Clinical exclusion of urinary tract infection is requested. Left hydrocele evident. Coronary calcification noted. Patient is feeling slightly better today. Still is having significant swelling to the left testicle. Still having some fevers. But less chills and rigors. Appetite is improving. Objective - Vital Signs Vital signs: Vital Signs Temp 100.1 F H 09/17/17 16:47 Pulse 87 09/17/17 15:00 Resp 20 09/17/17 15:00 BP 114/71 09/17/17 15:00 Pulse Ox 96 09/17/17 15:00 Intake & Output 09/17/17 09/17/17 09/18/17 06:59 18:59 06:59 Intake Total 400 Output Total 850 800 Balance -850 -400 Intake: Oral 400 Output: Urine 850 800 Other: Voiding Method Urinal Urinal - Exam Gen: This is a 61-year-old male patient who looks older than stated age. Relates to bit more discomfort this evening possibly due to some pinching that occurred to the scrotum when he took a walk. HEENT: Head is atraumatic, normocephalic. Pupils equal, round. Sclerae is anicteric. Conjunctiva pink. Mucous membranes of the mouth are moist. Patient is near edentulous with only a few teeth. No thrush noted. NECK: Supple. No JVD. No lymphadenopathy. No thyromegaly. LUNGS: Scattered rhonchi. No wheezes. No intercostal retractions. HEART: Regular rate and rhythm. No murmur. ABDOMEN: Soft. Bowel sounds are present. No masses. No tenderness. EXTREMITIES: Trace bilateral pedal edema. No calf tenderness. Dorsalis pedis + 2 bilaterally. NEUROLOGICAL: Patient is awake, alert and oriented x3. Scrotum is quite swollen. Less so than yesterday. There is less erythema. The left testicle remains very swollen for a tender with the markedly enlarged epididymis. - Labs CBC & Chem 7: 09/16/17 08:32 09/16/17 08:32 Labs: Microbiology - Last 24 Hours (Table) 09/15/17 20:05 Blood Culture - Preliminary Blood No Growth after 48 hours 09/16/17 11:52 Blood Culture - Preliminary Blood No Growth after 24 hours 09/16/17 12:00 Urine Culture - Final Urine,Voided 09/15/17 16:40 Urine Culture - Preliminary Urine,Clean Catch Gram Neg Bacilli Laboratory Results WBC 26.4 k/uL (3.8-10.6) H* 09/16/17 08:32 RBC 4.48 m/uL (4.30-5.90) 09/16/17 08:32 Hgb 13.4 gm/dL (13.0-17.5) 09/16/17 08:32 Hct 40.5 % (39.0-53.0) 09/16/17 08:32 MCV 90.4 fL (80.0-100.0) 09/16/17 08:32 MCH 29.8 pg (25.0-35.0) 09/16/17 08:32 MCHC 33.0 g/dL (31.0-37.0) 09/16/17 08:32 RDW 13.0 % (11.5-15.5) 09/16/17 08:32 Plt Count 287 k/uL (150-450) 09/16/17 08:32 Neutrophils % 85 % 09/16/17 08:32 Lymphocytes % 8 % 09/16/17 08:32 Monocytes % 6 % 09/16/17 08:32 Eosinophils % 0 % 09/16/17 08:32 Basophils % 0 % 09/16/17 08:32 Neutrophils # 22.5 k/uL (1.3-7.7) H 09/16/17 08:32 Lymphocytes # 2.1 k/uL (1.0-4.8) 09/16/17 08:32 Monocytes # 1.5 k/uL (0-1.0) H 09/16/17 08:32 Eosinophils # 0.1 k/uL (0-0.7) 09/16/17 08:32 Basophils # 0.1 k/uL (0-0.2) 09/16/17 08:32 PT 10.1 sec (9.0-12.0) 09/15/17 16:40 INR 1.0 (<1.2) 09/15/17 16:40 APTT 25.1 sec (22.0-30.0) 09/15/17 16:40 Sodium 139 mmol/L (137-145) 09/16/17 08:32 Potassium 3.9 mmol/L (3.5-5.1) 09/16/17 08:32 Chloride 106 mmol/L (98-107) 09/16/17 08:32 Carbon Dioxide 23 mmol/L (22-30) 09/16/17 08:32 Anion Gap 10 mmol/L 09/16/17 08:32 BUN 10 mg/dL (9-20) 09/16/17 08:32 Creatinine 0.71 mg/dL (0.66-1.25) 09/16/17 08:32 Est GFR (MDRD) Af Amer >60 (>60 ml/min/1.73 sqM) 09/16/17 08:32 Est GFR (MDRD) Non-Af >60 (>60 ml/min/1.73 sqM) 09/16/17 08:32 Glucose 105 mg/dL (74-99) H 09/16/17 08:32 Plasma Lactic Acid Reji 1.5 mmol/L (0.7-2.0) 09/15/17 20:51 Calcium 9.2 mg/dL (8.4-10.2) 09/16/17 08:32 Magnesium 2.1 mg/dL (1.6-2.3) 09/16/17 08:32 Total Bilirubin 1.2 mg/dL (0.2-1.3) 09/16/17 08:32 AST 17 U/L (17-59) 09/16/17 08:32 ALT 27 U/L (21-72) 09/16/17 08:32 Alkaline Phosphatase 74 U/L (38-126) 09/16/17 08:32 Troponin I 0.014 ng/mL (0.000-0.034) 09/15/17 16:40 Total Protein 6.4 g/dL (6.3-8.2) 09/16/17 08:32 Albumin 3.5 g/dL (3.5-5.0) 09/16/17 08:32 Amylase 57 U/L (30-110) 09/15/17 16:40 Lipase 66 U/L (23-300) 09/15/17 16:40 Urine Color Yellow 09/15/17 16:40 Urine Appearance Turbid (Clear) 09/15/17 16:40 Urine pH 6.5 (5.0-8.0) 09/15/17 16:40 Ur Specific Martin 1.016 (1.001-1.035) 09/15/17 16:40 Urine Protein 2+ (Negative) H 09/15/17 16:40 Urine Glucose (UA) Negative (Negative) 09/15/17 16:40 Urine Ketones Negative (Negative) 09/15/17 16:40 Urine Blood Moderate (Negative) H 09/15/17 16:40 Urine Nitrite Positive (Negative) 09/15/17 16:40 Urine Bilirubin Negative (Negative) 09/15/17 16:40 Urine Urobilinogen <2.0 mg/dL (<2.0) 09/15/17 16:40 Ur Leukocyte Esterase Large (Negative) H 09/15/17 16:40 Urine RBC 29 /hpf (0-5) H 09/15/17 16:40 Urine WBC >182 /hpf (0-5) H 09/15/17 16:40 Urine WBC Clumps Many /hpf (None) H 09/15/17 16:40 Urine Bacteria Few /hpf (None) H 09/15/17 16:40 Urine Mucus Many /hpf (None) H 09/15/17 16:40 Urine Yeast (Budding) Few /hpf (None) H 09/15/17 16:40 Microbiology 09/15/17 20:05 Blood Blood Culture - Preliminary No Growth after 48 hours 09/16/17 11:52 Blood Blood Culture - Preliminary No Growth after 24 hours 09/16/17 12:00 Urine,Voided Urine Culture - Final 09/15/17 16:40 Urine,Clean Catch Urine Culture - Preliminary Gram Neg Bacilli Assessment and Plan (1) Orchitis, epididymitis, and epididymo-orchitis Narrative/Plan: Pleasant gentleman has some difficulties with testicular swelling through the summer. Had multiple courses of antibiotic therapy. Again is now had significant swelling. Patient does have evidence of enlarged prostate and symptoms of BPH. It is likely that he is getting infection into the epididymis related to this issue. For antibiotic therapy ceftriaxone will be utilized with concerns to quinolone resistant infection. Elevation and cooling of the scrotum is helpful. Cultures in process will help direct antibiotic therapy at discharge. Patient feels just a better since coming into hospital. Tamsulosin was added. Computed tomography scan is reviewed without evidence of acute pyelonephritis. Blood culture to show evidence of gram-negative bacilli. Await the final culture result to determine the best possible option for antibiotic therapy the time of his discharge. Because he has had prior quinolone therapy there is concern for resistance and may require alternative therapy. Current Visit: Yes Status: Acute Code(s): N45.2 - ORCHITIS; N45.1 - EPIDIDYMITIS; N45.3 - EPIDIDYMO-ORCHITIS SNOMED Code(s): 176974142 (2) Gram negative sepsis Current Visit: Yes Status: Acute Code(s): A41.50 - GRAM-NEGATIVE SEPSIS, UNSPECIFIED SNOMED Code(s): 197398976
[2017-09-18] MEDS: SODIUM CHLORIDE 0.9% 1,000 ML IV SCH ×3 (03:34→11:30)
[2017-09-18] MEDS: HYDROmorphone 0.5 MG/0.5 ML SYRINGE IVP PRN ×2 (03:34→07:54)
[2017-09-18] MEDS: KETOROLAC 30 MG/ML 1 ML VIAL IVP SCH ×2 (06:32→11:29)
[2017-09-18] MEDS: LISINOPRIL 20 MG TAB PO SCH (07:54)
[2017-09-18] MEDS: cloNIDine HCL 0.1 MG TAB PO SCH (07:54)
[2017-09-18] MEDS: MINOXIDIL 2.5 MG TAB PO SCH (07:54)
[2017-09-18] MEDS: TAMSULOSIN 0.4 MG CAP.ER.24H PO SCH (07:54)
[2017-09-18] MEDS: FUROSEMIDE 40 MG TAB PO SCH (07:54)
[2017-09-18] MEDS: NICOTINE 21MG/24HR PATCH TRANSDERM SCH (07:54)
[2017-09-18] MEDS: hydrALAZINE HCL 25 MG TAB PO SCH (07:54)
[2017-09-18 08:06] VITALS: RESP 16
[2017-09-18] MEDS: cefTRIAXone IN SWFI 2,000 MG/20 ML SYRINGE IVP SCH (11:30)
[2017-09-18 14:42] VITALS: BP 140/71; PULSE 75; TEMP 97.4
--- NOTE | 2017-09-18 15:03 | PN ---
PROGRESS NOTE DATE OF SERVICE: 09/18/2017 CHIEF COMPLAINT: Epididymitis and orchitis with sepsis. HISTORY OF PRESENT ILLNESS: This gentleman is doing better. Temperature has been down over the last 24 hours. He is feeling better. PHYSICAL EXAM: Chest is clear. Cardiac exam is normal. The abdomen is soft and nontender. IMPRESSION: Left epididymitis and orchitis. PLAN: No change in program. Culture has grown out E coli, which is sensitive to ciprofloxacin, but not penicillin or sulfa. MMODL / IJN: [id number] /
[2017-09-18 15:07] LABS: Basophils % (A) 0 %; Eosinophils % (A) 0 %; HCT 35.5 % (39.0-53.0); HGB 11.7 gm/dL (13.0-17.5); Lymphocytes # (A) 1.6 k/uL (1.0-4.8); Lymphocytes % (A) 16 %; MCH 30.1 pg (25.0-35.0); MCV 91.2 fL (80.0-100.0); Mean Platelet Volume 7.5; Monocytes # (A) 0.5 k/uL (0-1.0); Monocytes % (A) 5 %; Neutrophils # (A) 7.4 k/uL (1.3-7.7); Neutrophils % (A) 76 %; Platelet Count 320 k/uL (150-450); RBC 3.89 m/uL (4.30-5.90); WBC 9.7 k/uL (3.8-10.6)
--- NOTE | 2017-09-18 21:20 | P.PN ---
Subjective Progress Note Date: 09/18/17 Principal diagnosis: Sepsis, epididymoorchitis This is a 61-year-old male patient gives history that he had developed dysuria, hematuria and pain in his testicles along with decreased appetite, fever, chills and rigors. He gives history that he had swollen testicles last summer and he was treated by his primary care physician and was placed on initially penicillin which she was not able to tolerate, a second antibiotic which she was not able to tolerate and ended up with 2 courses of ciprofloxacin. Patient was not hospitalized at that time. Patient came into [facility] emergency center and found to have signs of sepsis with fever, tachycardia, leukocytosis. Creatinine was 0.83. Urinalysis was turbid, blood moderate, leukoesterase large, RBCs 29, WBC is greater than 182, WBC clumps many, bacteria few, yeast few. Urine culture is in process and blood culture is status received. Patient was started on Levaquin and [facility]. He states that blood and dysuria are slightly better and he was concerned that he passed a stone. He does have remote history of kidney stones. Ultrasound of the scrotum revealed left epididymal orchitis with small partially septated hydrocele. CAT scan revealed mild inflammatory changes surrounding the bladder and ureters and upper collection systems bilaterally and symmetrically. Clinical exclusion of urinary tract infection is requested. Left hydrocele evident. Coronary calcification noted. Patient is feeling slightly better today. Pain has improved. Ongoing swelling to the left testicle. But it is improved slightly. He is no longer having fever. Appetite is improving. Objective - Vital Signs Vital signs: Vital Signs Temp 97.4 F L 09/18/17 14:41 Pulse 75 09/18/17 14:41 Resp 16 09/18/17 14:41 BP 140/71 09/18/17 14:41 Pulse Ox 97 09/18/17 14:41 Intake & Output 09/18/17 09/18/17 09/19/17 06:59 18:59 06:59 Intake Total 500 Output Total 500 Balance 500 -500 Intake: Oral 500 Output: Urine 500 Other: Voiding Method Urinal Urinal # Voids 1 - Exam Gen: This is a 61-year-old male patient who looks older than stated age. Relates to bit more discomfort this evening possibly due to some pinching that occurred to the scrotum when he took a walk. HEENT: Head is atraumatic, normocephalic. Pupils equal, round. Sclerae is anicteric. Conjunctiva pink. Mucous membranes of the mouth are moist. Patient is near edentulous with only a few teeth. No thrush noted. NECK: Supple. No JVD. No lymphadenopathy. No thyromegaly. LUNGS: Scattered rhonchi. No wheezes. No intercostal retractions. HEART: Regular rate and rhythm. No murmur. ABDOMEN: Soft. Bowel sounds are present. No masses. No tenderness. EXTREMITIES: Trace bilateral pedal edema. No calf tenderness. Dorsalis pedis + 2 bilaterally. NEUROLOGICAL: Patient is awake, alert and oriented x3. Scrotum is less swollen. There is less erythema. The left testicle remains swollen less tender with the enlarged epididymis. - Labs CBC & Chem 7: 09/18/17 14:40 09/16/17 08:32 Labs: Abnormal Lab Results - Last 24 Hours (Table) 09/18/17 Range/Units 14:40 RBC 3.89 L (4.30-5.90) m/uL Hgb 11.7 L (13.0-17.5) gm/dL Hct 35.5 L (39.0-53.0) % Microbiology - Last 24 Hours (Table) 09/16/17 11:52 Blood Culture - Preliminary Blood No Growth after 48 hours 09/15/17 16:40 Urine Culture - Final Urine,Clean Catch Escherichia coli 09/15/17 20:05 Blood Culture - Preliminary Blood No Growth after 48 hours Laboratory Results WBC 9.7 k/uL (3.8-10.6) 09/18/17 14:40 RBC 3.89 m/uL (4.30-5.90) L 09/18/17 14:40 Hgb 11.7 gm/dL (13.0-17.5) L 09/18/17 14:40 Hct 35.5 % (39.0-53.0) L 09/18/17 14:40 MCV 91.2 fL (80.0-100.0) 09/18/17 14:40 MCH 30.1 pg (25.0-35.0) 09/18/17 14:40 MCHC 33.0 g/dL (31.0-37.0) 09/18/17 14:40 RDW 13.0 % (11.5-15.5) 09/18/17 14:40 Plt Count 320 k/uL (150-450) 09/18/17 14:40 Neutrophils % 76 % 09/18/17 14:40 Lymphocytes % 16 % 09/18/17 14:40 Monocytes % 5 % 09/18/17 14:40 Eosinophils % 0 % 09/18/17 14:40 Basophils % 0 % 09/18/17 14:40 Neutrophils # 7.4 k/uL (1.3-7.7) 09/18/17 14:40 Lymphocytes # 1.6 k/uL (1.0-4.8) 09/18/17 14:40 Monocytes # 0.5 k/uL (0-1.0) 09/18/17 14:40 Eosinophils # 0.0 k/uL (0-0.7) 09/18/17 14:40 Basophils # 0.0 k/uL (0-0.2) 09/18/17 14:40 PT 10.1 sec (9.0-12.0) 09/15/17 16:40 INR 1.0 (<1.2) 09/15/17 16:40 APTT 25.1 sec (22.0-30.0) 09/15/17 16:40 Sodium 139 mmol/L (137-145) 09/16/17 08:32 Potassium 3.9 mmol/L (3.5-5.1) 09/16/17 08:32 Chloride 106 mmol/L (98-107) 09/16/17 08:32 Carbon Dioxide 23 mmol/L (22-30) 09/16/17 08:32 Anion Gap 10 mmol/L 09/16/17 08:32 BUN 10 mg/dL (9-20) 09/16/17 08:32 Creatinine 0.71 mg/dL (0.66-1.25) 09/16/17 08:32 Est GFR (MDRD) Af Amer >60 (>60 ml/min/1.73 sqM) 09/16/17 08:32 Est GFR (MDRD) Non-Af >60 (>60 ml/min/1.73 sqM) 09/16/17 08:32 Glucose 105 mg/dL (74-99) H 09/16/17 08:32 Plasma Lactic Acid Reji 1.5 mmol/L (0.7-2.0) 09/15/17 20:51 Calcium 9.2 mg/dL (8.4-10.2) 09/16/17 08:32 Magnesium 2.1 mg/dL (1.6-2.3) 09/16/17 08:32 Total Bilirubin 1.2 mg/dL (0.2-1.3) 09/16/17 08:32 AST 17 U/L (17-59) 09/16/17 08:32 ALT 27 U/L (21-72) 09/16/17 08:32 Alkaline Phosphatase 74 U/L (38-126) 09/16/17 08:32 Troponin I 0.014 ng/mL (0.000-0.034) 09/15/17 16:40 Total Protein 6.4 g/dL (6.3-8.2) 09/16/17 08:32 Albumin 3.5 g/dL (3.5-5.0) 09/16/17 08:32 Amylase 57 U/L (30-110) 09/15/17 16:40 Lipase 66 U/L (23-300) 09/15/17 16:40 Urine Color Yellow 09/15/17 16:40 Urine Appearance Turbid (Clear) 09/15/17 16:40 Urine pH 6.5 (5.0-8.0) 09/15/17 16:40 Ur Specific [place] 1.016 (1.001-1.035) 09/15/17 16:40 Urine Protein 2+ (Negative) H 09/15/17 16:40 Urine Glucose (UA) Negative (Negative) 09/15/17 16:40 Urine Ketones Negative (Negative) 09/15/17 16:40 Urine Blood Moderate (Negative) H 09/15/17 16:40 Urine Nitrite Positive (Negative) 09/15/17 16:40 Urine Bilirubin Negative (Negative) 09/15/17 16:40 Urine Urobilinogen <2.0 mg/dL (<2.0) 09/15/17 16:40 Ur Leukocyte Esterase Large (Negative) H 09/15/17 16:40 Urine RBC 29 /hpf (0-5) H 09/15/17 16:40 Urine WBC >182 /hpf (0-5) H 09/15/17 16:40 Urine WBC Clumps Many /hpf (None) H 09/15/17 16:40 Urine Bacteria Few /hpf (None) H 09/15/17 16:40 Urine Mucus Many /hpf (None) H 09/15/17 16:40 Urine Yeast (Budding) Few /hpf (None) H 09/15/17 16:40 Microbiology 09/16/17 11:52 Blood Blood Culture - Preliminary No Growth after 48 hours 09/15/17 16:40 Urine,Clean Catch Urine Culture - Final Escherichia coli 09/15/17 20:05 Blood Blood Culture - Preliminary No Growth after 48 hours 09/16/17 12:00 Urine,Voided Urine Culture - Final Assessment and Plan (1) Orchitis, epididymitis, and epididymo-orchitis Narrative/Plan: Pleasant gentleman has some difficulties with testicular swelling through the summer. Had multiple courses of antibiotic therapy. Again is now had significant swelling. Patient does have evidence of enlarged prostate and symptoms of BPH. It is likely that he is getting infection into the epididymis related to this issue. For antibiotic therapy ceftriaxone will be utilized with concerns to quinolone resistant infection. Elevation and cooling of the scrotum is helpful. Cultures in process will help direct antibiotic therapy at discharge. Patient feels just a better since coming into hospital. Tamsulosin was added. Computed tomography scan is reviewed without evidence of acute pyelonephritis. Blood culture to show evidence of gram-negative bacilli. The final cultures become available. Escherichia coli is found and it is susceptible to levofloxacin. He has been seen by primary care and urology. Agree the patient is ready for discharge to home on oral antimicrobial therapy. An extended course of antibiotic is required given his recurrence potential that there is a prostate source of infection. We did follow up with urology and can follow-up in the infectious disease clinic if needed. Status: Acute Code(s): N45.2 - ORCHITIS; N45.1 - EPIDIDYMITIS; N45.3 - EPIDIDYMO-ORCHITIS SNOMED Code(s): 079268938 (2) Gram negative sepsis Status: Acute Code(s): A41.50 - GRAM-NEGATIVE SEPSIS, UNSPECIFIED SNOMED Code(s): 612153335
--- NOTE | 2017-09-21 17:12 | DS ---
DISCHARGE SUMMARY CHIEF COMPLAINT: Urinary tract infection, cystitis and a left epididymal orchitis. HISTORY OF PRESENT ILLNESS AND PHYSICAL EXAM: The details of this man's history and physical can be found in the initial workup. LABORATORY STUDIES: While he was in a hospital, he had laboratory studies, details of which can be found in the laboratory section of chart. COURSE IN HOSPITAL: After admission, he was placed on bedrest, started on intravenous fluids and IV antibiotics. Seen in consultation by Urology and Infectious Disease. He improved on the antibiotic program. He is doing well. It was felt that he could be discharged on the . He will go home on Levaquin and be seen in the office in several days. FINAL DIAGNOSIS: 1. Left orchidoepididymitis. 2. Cystitis. 3. Chronic obstructive pulmonary disease. 4. Hypertension. OPERATIONS: None. CONSULTATIONS: Urology and Infectious Disease. He is improved. MMODL / IJN: [id number] /
== END 2017-09-18 17:21 | disposition home or self-care (01) | DRG 872 ==
LOC: EC 15:54 → 4MS4W 18:56
PROVIDERS: ADMIT Family Medicine; ATTEND Family Medicine
DX: A41.50 Gram-negative sepsis, unspecified (principal); L03.315 Cellulitis of perineum; N39.0 Urinary tract infection, site not specified; F17.200 Nicotine dependence, unspecified, uncomplicated; N45.3 Epididymo-orchitis; I10 Essential (primary) hypertension; J44.9 Chronic obstructive pulmonary disease, unspecified; N40.0 Benign prostatic hyperplasia without lower urinary tract symptoms; N41.1 Chronic prostatitis; N43.3 Hydrocele, unspecified; Z87.442 Personal history of urinary calculi; Z79.899 Other long term (current) drug therapy; Z88.6 Allergy status to analgesic agent; Z88.0 Allergy status to penicillin; Z88.8 Allergy status to other drugs, medicaments and biological substances; Z82.49 Family history of ischemic heart disease and other diseases of the circulatory system
CPT/HCPCS: 36415; 74176; 76870; 80053; 81001; 82150; 83605; 83690; 83735; 84484; 85025; 85610; 85730; 87040; 87077; 87086; 87186; 93005; 93975; 96361; 96365; 96375; 99285

== ENCOUNTER → 2018-12-02 | Outpatient (CLI) | payer MEDICARE ==
--- NOTE | 2018-12-02 09:22 | NM ---
Nuclear medicine hepatobiliary scan. HISTORY: Pain. DOSAGE: The patient received 8 ounces of ensure plus and 5.1 mCi of Technetium 99m Choletec. FINDINGS: There is normal hepatic extraction. The gallbladder is seen by 25 minutes. There is bilia ry to bowel clearance by after 60 minutes minutes. Ejection fraction is 92%. IMPRESSION: 1. Ejection fraction of 92% can occasionally be seen with hyperdynamic gallbladder. Correlate clinica lly.
== END | disposition home or self-care (01) ==
LOC: RADNMMAIN 06:40
PROVIDERS: ATTEND Surgery
DX: K82.8 Other specified diseases of gallbladder (principal)
CPT/HCPCS: 78227; A9537; J2805

== ENCOUNTER → 2019-01-06 | Day surgery (SDC) | payer MEDICARE ==
[2019-01-04 12:42] VITALS: BMI 27.8
[~2019-01-06] MED LIST: DEXAMETHASONE SOD PHOSPHATE 10 MG/ML 1 ML VIAL IV ONE; GLYCOPYRROLATE 0.2 MG/ML 2 ML VIAL ONE; HEPARIN SODIUM,PORCINE 5,000 UNIT/ML 1 ML VIAL SQ ONE; HYDROcodone/APAP 7.5-325MG 1 EACH TAB PO ONE; HYDROmorphone 0.5 MG/0.5 ML SYRINGE IVP PRN; LACTATED RINGERS 1,000 ML IV SCH; LIDOCAINE 0.5%-EPI 1:200,000 50 ML VIAL SQ ONE; LIDOCAINE 1% 20 ML VIAL (10MG/ML) FOR IV START INTRADERMA ONE; LIDOCAINE 1% INJ 10MG/ML (20 ML MDV) ONE; MIDAZOLAM 2 MG/2 ML VIAL IV PRN; MIDAZOLAM 2 MG/2 ML VIAL ONE; NEOSTIGMINE 1 MG/ML 10 ML VIAL ONE; PROPOFOL 10 MG/ML 20 ML VIAL IV ONE; Pre Op ABX Message 1 EACH MISC MISCELLANE ONE; ROCURONIUM BROMIDE 10 MG/ML 10 ML VIAL IV ONE; SCOPOLAMINE 1.5MG/72HR PATCH TRANSDERM ONE; SUCCINYLCHOLINE CHLORIDE 100 MG/5 ML SYR IV ONE; ceFAZolin IN SWFI 2 GM/20 ML SYRINGE IVP ONE; fentaNYL (PF) 50 MCG/ML 2 ML AMP ONE
[2019-01-06] MEDS: ONDANSETRON 4 MG/2 ML VIAL IVP ONE ×2 (07:21→09:21)
--- NOTE | 2019-01-06 08:18 | P.GSHP ---
History of Present Illness H&P Date: 01/06/19 Chief Complaint: Right upper quadrant pain This a 63-year-old male who presents today for laparoscopic cholestatic. Patient's had complete the right upper quadrant pain. His recent HIDA scan shows an abnormal ejection fraction. Past Medical History Past Medical History: Chest Pain / Angina, Hypertension Additional Past Medical History / Comment(s): kidney stones. bloating/constipation History of Any Multi-Drug Resistant Organisms: None Reported Past Surgical History: Hernia Repair, Orthopedic Surgery Additional Past Surgical History / Comment(s): neck surgery x3, right hydrocele repair, inguinal hernia repair, carpel tunnel repair bilaterally Past Anesthesia/Blood Transfusion Reactions: Postoperative Nausea & Vomiting (PONV) Smoking Status: Current every day smoker - Past Family History Mother Family Medical History: Congestive Heart Failure (CHF), Coronary Artery Disease (CAD) Additional Family Medical History / Comment(s): bypass surgery. low blood sugar Father Family Medical History: Coronary Artery Disease (CAD) Additional Family Medical History / Comment(s): bypass surgery Medications and Allergies Home Medications Medication Instructions Recorded Confirmed Type Cholecalciferol [Vitamin D3] 2,000 unit PO DAILY 09/15/17 01/06/19 History Furosemide [Lasix] 40 mg PO DAILY 09/15/17 01/06/19 History Minoxidil [Loniten] 10 mg PO DAILY 09/15/17 01/06/19 History cloNIDine HCL [Catapres] 0.1 mg PO TID 09/15/17 01/06/19 History L.acidoph,Paracasei, B.lactis 1 each PO DAILY 01/04/19 01/06/19 History [Probiotic] Allergies Allergy/AdvReac Type Severity Reaction Status Date / Time ANGEL LUIS Inhibitors Allergy Unknown Verified 01/06/19 07:09 naproxen [From Naprosyn] Allergy Unknown Verified 01/06/19 07:09 Penicillins Allergy Unknown Verified 01/06/19 07:09 Surgical - Exam Vital Signs Temp Pulse Resp BP Pulse Ox 97.8 F 78 18 157/89 97 01/06/19 07:01 01/06/19 07:01 01/06/19 07:01 01/06/19 07:01 01/06/19 07:01 - General well developed, well nourished, no distress - Eyes PERRL - ENT normal pinna - Neck no masses - Respiratory normal expansion - Cardiovascular Rhythm: regular - Abdomen Abdomen: soft, non tender Results - Labs 01/06/19 07:20 Diabetes panel 01/06/19 Range/Units 07:20 Potassium 3.5 (3.5-5.1) mmol/L Pituitary panel 01/06/19 Range/Units 07:20 Potassium 3.5 (3.5-5.1) mmol/L Adrenal panel 01/06/19 Range/Units 07:20 Potassium 3.5 (3.5-5.1) mmol/L Assessment and Plan Assessment: Right upper quadrant pain Chronic cholecystitis We'll perform laparoscopic cholecystectomy
[2019-01-06 09:13] VITALS: TEMP 97.3
--- NOTE | 2019-01-06 09:46 | P.OP ---
Date of Procedure: 01/06/19 Preoperative Diagnosis: Cholecystitis Postoperative Diagnosis: Cholecystitis Procedure(s) Performed: Laparoscopic cholecystectomy Anesthesia: GLADYS Surgeon: Jean-Claude Sepulveda Estimated Blood Loss (ml): 5 Pathology: other (Lap pooja) Condition: stable Disposition: PACU Description of Procedure: The patient was placed on the operating table. The patient received a general endotracheal tube anesthesia. The patients abdomen was prepped and draped in the usual sterile fashion. Through an infraumbilical stab incision, the fascia of the anterior abdominal wall was grasped with a pair of Kochers and then the Veress needle was placed in the peritoneal cavity. Position of the Veress needle was confirmed with positive drop test. The abdomen was then insufflated. After adequate insufflation, the 10 mm trocar was placed in the peritoneal cavity. Following this the laparoscope was placed in the peritoneal cavity. The patient was placed in the head-up, right side up position and then a 5 mm trocar was placed in the right lateral and right subcostal position under direct visualization. A 8 mm trocar was placed in the epigastric position. The gallbladder was grasped in the fundus and infundibulum. Traction on the gallbladder was placed in the lateral and the cephalad positions. The triangle of Calot was visualized.. The cystic duct was bluntly dissected until the union of the cystic duct and common bile duct was seen. A critical view of safety was achieved. The cystic duct was then divided and sealed with the Harmonic scissors. A PDS Endoloop was then placed throughout the cystic duct stump. The cystic artery divided and sealed with the Harmonic scissors. The gallbladder was then removed from the liver bed using Harmonic scissors. The gallbladder was then extracted through the epigastric port site. Operative field was checked for any bleeding spots and Harmonic scissors was used to coagulate the liver bed. The abdomen was irrigated. The trocars were removed. The skin was closed using interrupted 3-0 Vicryl suture. Dermabond dressing were applied. The patient tolerated the procedure well.
[2019-01-06 09:59] VITALS: RESP 17
[2019-01-06 10:16] VITALS: BP 151/89; PULSE 84
== END | disposition home or self-care (01) ==
LOC: OR 06:42
PROVIDERS: ATTEND Surgery
DX: K80.10 Calculus of gallbladder with chronic cholecystitis without obstruction (principal); I10 Essential (primary) hypertension; F17.210 Nicotine dependence, cigarettes, uncomplicated; Z87.442 Personal history of urinary calculi; Z82.49 Family history of ischemic heart disease and other diseases of the circulatory system; Z79.899 Other long term (current) drug therapy; Z88.6 Allergy status to analgesic agent; Z88.0 Allergy status to penicillin; Z88.8 Allergy status to other drugs, medicaments and biological substances
CPT/HCPCS: 88304; 84132; 47562; J2250; J1100; J2710; J2405; J2001; J3010; J0330; J2704; J0690

== ENCOUNTER → 2020-04-10 | Outpatient (CLI) | payer MEDICARE ==
[2020-04-10 14:31] LABS: HCT 49.3 % (39.0-53.0); HGB 15.9 gm/dL (13.0-17.5); MCH 30.9 pg (25.0-35.0); MCHC 32.1 g/dL (31.0-37.0); MCV 96.2 fL (80.0-100.0); Mean Platelet Volume 9.2; Platelet Count 231 k/uL (150-450); RBC 5.12 m/uL (4.30-5.90); RDW 13.5 % (11.5-15.5); WBC 11.8 k/uL (3.8-10.6)
[2020-04-10 14:41] LABS: African American GFR (CKD) >90 (>60 ml/min/1.73 sqM); Anion Gap 7 mmol/L; Blood Urea Nitrogen 10 mg/dL (9-20); Carbon Dioxide 27 mmol/L (22-30); Chloride 105 mmol/L (98-107); Non-African American GFR(CKD) >90 (>60 ml/min/1.73 sqM); Potassium 4.6 mmol/L (3.5-5.1); Sodium 139 mmol/L (137-145)
== END | disposition home or self-care (01) ==
LOC: LABPAT 14:13
PROVIDERS: ATTEND Internal Medicine Interventional Cardiology
DX: Z01.818 Encounter for other preprocedural examination (principal); R94.39 Abnormal result of other cardiovascular function study
CPT/HCPCS: 36415; 80051; 82565; 84520; 85027

== ENCOUNTER 2020-04-19 07:52 | Day surgery (SDC) | payer MEDICARE ==
[2020-04-12 12:26] VITALS: BMI 23.8
[~2020-04-19 07:52] MED LIST changes: +ALPRAZolam 0.25 MG TAB PO PRN; +ASPIRIN 325 MG TAB PO STA; +ATORVASTATIN 80 MG TAB PO STA; -DEXAMETHASONE SOD PHOSPHATE 10 MG/ML 1 ML VIAL IV ONE; -GLYCOPYRROLATE 0.2 MG/ML 2 ML VIAL ONE; -HEPARIN SODIUM,PORCINE 5,000 UNIT/ML 1 ML VIAL SQ ONE; -HYDROcodone/APAP 7.5-325MG 1 EACH TAB PO ONE; -HYDROmorphone 0.5 MG/0.5 ML SYRINGE IVP PRN; -LACTATED RINGERS 1,000 ML IV SCH; -LIDOCAINE 0.5%-EPI 1:200,000 50 ML VIAL SQ ONE; -LIDOCAINE 1% 20 ML VIAL (10MG/ML) FOR IV START INTRADERMA ONE; -LIDOCAINE 1% INJ 10MG/ML (20 ML MDV) ONE; -MIDAZOLAM 2 MG/2 ML VIAL IV PRN; -MIDAZOLAM 2 MG/2 ML VIAL ONE; -NEOSTIGMINE 1 MG/ML 10 ML VIAL ONE; +NITROGLYCERIN SL TABS 0.4 MG TAB SUBLINGUAL PRN; -PROPOFOL 10 MG/ML 20 ML VIAL IV ONE; -Pre Op ABX Message 1 EACH MISC MISCELLANE ONE; -ROCURONIUM BROMIDE 10 MG/ML 10 ML VIAL IV ONE; -SCOPOLAMINE 1.5MG/72HR PATCH TRANSDERM ONE; +SODIUM CHLORIDE 0.9% 1,000 ML in EMPTY BAG 1 BAG IV ONE; -SUCCINYLCHOLINE CHLORIDE 100 MG/5 ML SYR IV ONE; -ceFAZolin IN SWFI 2 GM/20 ML SYRINGE IVP ONE; -fentaNYL (PF) 50 MCG/ML 2 ML AMP ONE
[2020-04-19] MEDS ORDERED: NICOTINE 21MG/24HR PATCH TRANSDERM STA (08:13)
[2020-04-19] MEDS ORDERED: VERAPAMIL 2.5 MG/ML 2 ML AMP ONE (08:28)
[2020-04-19] MEDS ORDERED: LIDOCAINE 1% INJ 10MG/ML (20 ML MDV) ONE (08:28)
[2020-04-19] MEDS ORDERED: fentaNYL (PF) 50 MCG/ML 2 ML AMP ONE (08:29)
[2020-04-19] MEDS ORDERED: MIDAZOLAM 2 MG/2 ML VIAL IV ONE ×2 (08:34)
[2020-04-19] MEDS ORDERED: LIDOCAINE 1% INJ 10MG/ML (20 ML MDV) SQ ONE (08:41)
[2020-04-19] MEDS ORDERED: fentaNYL (PF) 50 MCG/ML 2 ML AMP IVP ONE (08:45)
[2020-04-19] MEDS: VERAPAMIL SYRINGE (5 MG/10 ML) INTRAARTER ONE ×3 (08:46→09:18)
[2020-04-19] MEDS ORDERED: HEPARIN SODIUM 1,000 UN/ML (10ML VL) ONE (08:56)
[2020-04-19] MEDS ORDERED: HEPARIN SODIUM 1,000 UN/ML (10ML VL) IVPB ONE (08:57)
[2020-04-19] MEDS ORDERED: CLOPIDOGREL 75 MG TAB ONE (09:03)
[2020-04-19] MEDS ORDERED: CLOPIDOGREL 75 MG TAB PO ONE (09:05)
[2020-04-19] MEDS: NITROGLYCERIN 1000MCG/10ML SYRINGE INTRACORON ONE ×2 (09:07→09:15)
[2020-04-19] MEDS ORDERED: NITROGLYCERIN SL TABS 0.4 MG TAB SUBLINGUAL PRN (09:27)
[2020-04-19] MEDS ORDERED: RX INFO: IV CONTRAST WAS GIVEN 1 EACH MISC MISCELLANE PRN (09:27)
[2020-04-19] MEDS ORDERED: MAG HYDROX/AL HYDROX/SIMETH 30 ML CUP PO PRN (09:27)
[2020-04-19] MEDS ORDERED: ZOLPIDEM 5 MG TAB PO PRN (09:27)
[2020-04-19] MEDS ORDERED: ATROPINE SULFATE 0.1 MG/ML 10ML SYRINGE IV PRN (09:27)
[2020-04-19] MEDS ORDERED: SODIUM CHLORIDE 0.9% 1,000 ML IV SCH (09:30)
--- NOTE | 2020-04-19 11:44 | CC ---
CARDIAC CATHETERIZATION REPORT CARDIAC CATHETERIZATION AND PERCUTANEOUS CORONARY INTERVENTION: DATE OF SERVICE: 04/19/2020 PERFORMING PHYSICIAN: Jeremiah Soto MD. PROCEDURE PERFORMED: 1. Selective right and left coronary angiogram. 2. Left heart catheterization. 3. Successful stenting of the mid left circumflex coronary artery using 2.5 x 12 mm Xience MAKENZIE with an excellent angiographic results and reduction of stenosis from 80% to 0%. INDICATION: This is a 64-year-old gentleman with hypertension and dyslipidemia who continues to have frequent PVCs. He underwent an echocardiogram which revealed evidence of cardiomyopathy with EF around 40%. The myocardial perfusion imaging stress test was performed and revealed moderate size fixed defect involving the inferior wall of the left ventricle without any reversible defect. Because of that, he was brought today to undergo a heart catheterization. APPROACH: Right radial artery. COMPLICATION: None. LEVEL OF SEDATION: Moderate with sedation length of 38 minutes. PROCEDURE DESCRIPTION: After obtaining an informed consent, the patient was brought to the cardiac medical lab scientist. The right radial artery was cannulated using micropuncture technique and a micropuncture wire passed easily, then I placed a 6-Guamanian sheath at the right radial artery. After that, I gave the patient 2 mg of verapamil IA and 8000 units of heparin IV. Selective right and left coronary angiogram performed. Selective right coronary angiogram was performed using JR4 catheter and left coronary angiogram was performed using JL3.5 catheters. After that, I did left heart catheterization using the JR4 catheter which crossed into the left ventricle. After that, I did intervene on the left circumflex, please see a separate paragraph for that. SELECTIVE CORONARY ANGIOGRAM: 1. The right coronary artery. The RCA is a large caliber vessel and is a dominant vessel. The RCA is chronically occluded in the midportion of long segment and fills by collaterals from the left coronary system. 2. The left main does not exist because the left circumflex is originating from the right coronary artery. 3. The left circumflex is a large caliber vessel, it is a nondominant vessel. The left circumflex has a tight lesion in the midportion, appeared to be in the range of 80%. 4. The LAD, the proximal LAD appeared to be angiographically normal. It gives rise into the first and second diagonal branches, both are large caliber vessel with mild disease only. The mid LAD appeared to have a lesion in the range of 60% to 70%. The LAD distally appeared to be angiographically normal. Extensive left to right collaterals filling the right coronary artery distally. 5. HEMODYNAMICS: The LVEDP was 12 mmHg without significant gradient across the aortic valve. 6. PCI of the left circumflex: Anticoagulation was initiated using Angiomax. Subsequently, I did repeat anticoagulation was performed using heparin. 7. Continuous ACT monitoring was done throughout the case. 8. I did engage the RCA using JR4 3.5 guide. I did wire the left circumflex using a whisper wire. After that, I did direct stenting of the lesion using 2.5 x 12 mm balloon which was inflated under 12 atmospheres for 20 seconds. I post dilated the stent using 2.5 x 12 mm NC balloon which was inflated under 16 atmospheres for 20 seconds. The following angiogram showed excellent angiographic results and the procedure was completed without any complication. CONCLUSION: 1. 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 2. Severe disease involving the mid left circumflex which is originating from the right coronary artery. 3. Intermediate to severe disease involving the mid LAD. 4. Successful stenting of the mid left circumflex as described above. POSTPROCEDURE MANAGEMENT: 1. Dual anti-platelet therapy. 2. Assess for viability in the inferior wall by cardiac MRI. 3. Follow up with the patient. MMODL / IJN: [id number] /
--- NOTE | 2020-04-19 11:59 | LTR ---
DATE OF SERVICE: 04/19/2020 RE: LermaGary kenyon Dear Dr. Sol; Mr. Gary Lerma underwent today heart catheterization and that revealed severe disease involving the left circumflex coronary artery and also chronic total occlusion of the right coronary artery. He underwent successful stenting of the left circumflex with an excellent angiographic results and without any complication. I want to thank you for allowing us to participate in his care and please do not hesitate to call if you have any question or concern. Sincerely, MD ERMELINDA Mullen / MELO: [id number] /
[2020-04-19] MEDS: ALPRAZolam 0.5 MG TAB PO PRN ×2 (13:35→20:43)
[2020-04-19] MEDS ORDERED: LOSARTAN 50 MG TAB PO SCH (21:00)
[2020-04-19] MEDS ORDERED: ATORVASTATIN 80 MG TAB PO SCH (21:00)
[2020-04-20 06:36] LABS: African American GFR (CKD) >90 (>60 ml/min/1.73 sqM); Anion Gap 5 mmol/L; Calcium 9.4 mg/dL (8.4-10.2); Carbon Dioxide 24 mmol/L (22-30); Chloride 107 mmol/L (98-107); Glucose 85 mg/dL (74-99); Non-African American GFR(CKD) >90 (>60 ml/min/1.73 sqM); Sodium 136 mmol/L (137-145)
[2020-04-20 06:38] LABS: Blood Urea Nitrogen 10 mg/dL (9-20); Potassium 4.3 mmol/L (3.5-5.1)
[2020-04-20 06:40] LABS: Basophils % (A) 0 %; Eosinophils # (A) 0.1 k/uL (0-0.7); Eosinophils % (A) 1 %; HCT 49.5 % (39.0-53.0); HGB 16.1 gm/dL (13.0-17.5); Lymphocytes # (A) 2.5 k/uL (1.0-4.8); Lymphocytes % (A) 25 %; MCH 31.1 pg (25.0-35.0); MCHC 32.5 g/dL (31.0-37.0); MCV 95.5 fL (80.0-100.0); Monocytes # (A) 0.6 k/uL (0-1.0); Monocytes % (A) 6 %; Neutrophils # (A) 6.5 k/uL (1.3-7.7); Neutrophils % (A) 66 %; Platelet Count 180 k/uL (150-450); RBC 5.18 m/uL (4.30-5.90); RDW 13.5 % (11.5-15.5); WBC 9.9 k/uL (3.8-10.6)
[2020-04-20 08:46] VITALS: PULSE 58; RESP 16; TEMP 97.9
[2020-04-20] MEDS ORDERED: ASPIRIN 81 MG PO SCH (09:00)
[2020-04-20] MEDS ORDERED: SPIRONOLACTONE 25 MG TAB PO SCH (09:00)
[2020-04-20] MEDS ORDERED: LOSARTAN 25 MG TAB PO SCH (09:00)
[2020-04-20] MEDS ORDERED: CHOLECALCIFEROL 1,000 UNIT TAB PO SCH (09:00)
[2020-04-20] MEDS ORDERED: CLOPIDOGREL 75 MG TAB PO SCH (09:29)
[2020-04-20 09:42] VITALS: BP 144/78
--- NOTE | 2020-04-20 09:58 | DS ---
DISCHARGE SUMMARY ADMISSION DATE: April 19, 2020. DISCHARGE DATE: April 20, 2020. BRIEF HISTORY: This is a very pleasant 64-year-old gentleman with hypertension and dyslipidemia who was admitted to the hospital yesterday and underwent a heart catheterization and stenting of the left circumflex coronary artery with an excellent angiographic results. The patient was seen today. The right radial site is good and nontender with good pulse. The patient is going to be discharged home on dual anti-platelet therapy as well as high-intensity statin and I will follow up with the patient in a week. ERMELINDA / IJN: [id number] /
== END 2020-04-20 10:17 | disposition home or self-care (01) ==
LOC: CATHCVL 07:52 → 3NCARDOBS 09:19 → CATHCVL 04-20 10:17
PROVIDERS: ATTEND Internal Medicine Interventional Cardiology
DX: I25.10 Atherosclerotic heart disease of native coronary artery without angina pectoris (principal); I25.82 Chronic total occlusion of coronary artery; I10 Essential (primary) hypertension; E78.5 Hyperlipidemia, unspecified; I49.3 Ventricular premature depolarization
CPT/HCPCS: 93458; 85347; 80048; 85025; C9600; C1725; C1769 ×3; C1894 ×2; C1887; C1874; J2250; J2001; J3010; J1644

== ENCOUNTER → 2021-01-20 | Outpatient (CLI) | payer MEDICARE ==
[2021-01-20 16:00] LABS: African American GFR (CKD) 109.4 (60.0-200.0); Albumin 4.6 g/dL (3.80-4.90); Albumin/Globulin Ratio 1.92 (1.60-3.17); Anion Gap 4.7 mmol/L (4.00-12.00); BUN/Creat Ratio 13.75 Ratio (12.00-20.00); Calcium 10.1 mg/dL (8.7-10.3); Carbon Dioxide 27.3 mmol/L (21.6-31.8); Chol/HDL Ratio 2.88; Globulin 2.4 g/dL (1.6-3.3); LDL Cholesterol,Calculated 61.4 mg/dL (0.0-131.0); Magnesium 2.2 mg/dL (1.5-2.4); Non-African American GFR(CKD) 94.4 (60.0-200.0); Potassium 5.1 mmol/L (3.5-5.5); Total Bilirubin 0.4 mg/dL (0.2-1.2); VLDL Calculation 17.6 mg/dL (5.00-40.00)
== END | disposition home or self-care (01) ==
LOC: LABWHC1 07:33
PROVIDERS: ATTEND Nurse Practitioner Adult Health
DX: I25.10 Atherosclerotic heart disease of native coronary artery without angina pectoris (principal); E78.5 Hyperlipidemia, unspecified
CPT/HCPCS: 36415; 80053; 80061; 83735

== ENCOUNTER → 2021-05-15 | Outpatient (CLI) | payer MEDICARE ==
--- NOTE | 2021-05-15 14:50 | XR ---
EXAMINATION TYPE: XR cervical spine comp DATE OF EXAM: 05/15/2021 COMPARISON: NONE HISTORY: Pain TECHNIQUE: Four views are submitted. FINDINGS: The odontoid is intact. There are no compression deformities. The prevertebral soft tissue structur es are within normal limits. Postsurgical change seen from levels C3-C7. Diffuse osteopenia with mul tilevel facet arthropathy. Suspect multilevel foraminal encroachment. IMPRESSION: 1. Diffuse osteopenia with multilevel facet arthropathy and postsurgical changes. Suspect multilevel foraminal encroachment. Correlate clinically..
--- NOTE | 2021-05-15 14:51 | XR ---
EXAM TYPE: LUMBAR SPINE X RAY SERIES COMPARISON: NONE HISTORY: Pain TECHNIQUE: 3 views are submitted. FINDINGS: Alignment is anatomic. The pedicles are intact. The transverse processes are intact. There is diff use osteopenia with multilevel degenerative disc disease with severe changes L4-5. Multilevel facet a rthropathy particularly noted L4-5 and L5-S1. Vascular calcifications noted. Slight anterolisthesis L 4 and L5 likely degenerative. IMPRESSION: 1. Multilevel degenerative disc disease most marked at L4-5 with advanced facet arthropathy at L4-5 a nd L5-S1. Suspect foraminal encroachment recommend MRI.
--- NOTE | 2021-05-15 14:51 | XR ---
EXAMINATION TYPE: XR thoracic spine 2V DATE OF EXAM: 05/15/2021 COMPARISON: NONE HISTORY: Pain TECHNIQUE: 3 views submitted FINDINGS: Alignment is anatomic. There is no compression deformities. Vertebral body height and disc interspa angelo are maintained. Hypertrophic and degenerative changes are seen throughout the thoracic spine. Po stsurgical change overlying the cervical spine. IMPRESSION: 1. Multilevel moderate degenerative disc disease..
[2021-05-15 21:49] LABS: Basophils # (A) 0.03 X 10*3/uL (0.00-0.10); Basophils % (A) 0.2 %; Eosinophils # (A) 0.06 X 10*3/uL (0.04-0.35); Eosinophils % (A) 0.5 %; HCT 48.9 % (39.6-50.0); HGB 16.1 g/dL (13.0-17.0); Lymphocytes # (A) 2.87 X 10*3/uL (0.90-5.00); Lymphocytes % (A) 22.9 %; MCH 30.9 pg (27.0-32.0); MCHC 32.9 g/dL (32.0-37.0); MCV 93.9 fL (80.0-97.0); Mean Platelet Volume 10.7 fL (9.5-12.2); Monocytes # (A) 0.98 X 10*3/uL (0.20-1.00); Monocytes % (A) 7.8 %; Neutrophils # (A) 8.53 X 10*3/uL (1.80-7.70); Neutrophils % (A) 68.1 %; Platelet Count 313 X 10*3/uL (140-440); RBC 5.21 X 10*6/uL (4.40-5.60); RDW 13.2 % (11.5-14.5); WBC 12.53 X 10*3/uL (4.50-10.00)
[2021-05-16 04:36] LABS: African American GFR (CKD) 91.8 (60.0-200.0); Albumin 4.9 g/dL (3.80-4.90); Albumin/Globulin Ratio 1.75 (1.60-3.17); Anion Gap 8.6 mmol/L (4.00-12.00); Calcium 10.3 mg/dL (8.7-10.3); Carbon Dioxide 26.4 mmol/L (21.6-31.8); Chol/HDL Ratio 3.3; Globulin 2.8 g/dL (1.6-3.3); Non-African American GFR(CKD) 79.2 (60.0-200.0); Potassium 4.6 mmol/L (3.5-5.5); Total Bilirubin 0.5 mg/dL (0.2-1.2); Total Protein 7.7 g/dL (6.2-8.2)
[2021-05-16 04:42] LABS: Prostate Specific Antigen 0.4 ng/mL (0.0-4.5)
== END | disposition home or self-care (01) ==
LOC: LABWHC1 14:07
PROVIDERS: ATTEND Internal Medicine
DX: I73.9 Peripheral vascular disease, unspecified (principal); I25.10 Atherosclerotic heart disease of native coronary artery without angina pectoris; I10 Essential (primary) hypertension; E78.5 Hyperlipidemia, unspecified; M46.92 Unspecified inflammatory spondylopathy, cervical region; M51.37 Other intervertebral disc degeneration, lumbosacral region
CPT/HCPCS: 36415; 72050; 72070; 72100; 80053; 80061; 84153; 85025

== ENCOUNTER → 2021-06-10 | Outpatient (CLI) | payer MEDICARE ==
--- NOTE | 2021-06-10 11:10 | US ---
EXAMINATION TYPE: US abd limited kidneys/bladder DATE OF EXAM: 06/10/2021 COMPARISON: CT abdomen and pelvis September 15, 2017 CLINICAL HISTORY: R10.9 RT flank pain, R94.5 Abnormal results of liver. EXAM MEASUREMENTS: Liver Length: 17.4 cm Gallbladder Wall: Surgically absent cm CBD: 0.3 cm Right Kidney: 11.1x4.7x5.6 cm Left Kidney: 11.1x6.8x5.4cm Pancreas: Obscured by bowel gas Liver: wnl Gallbladder: Surgically absent Evidence for sonographic Devlin's sign: No CBD: wnl Right Kidney: wnl Left Kidney wnl Bladder jets visualized Poor visualization of pancreas on initial images. Visualized liver is slightly heterogeneous in appea alexus without worrisome focal intrahepatic mass or hepatic ductal dilatation. No surrounding ascites. Gallbladder surgically absent. Kidneys symmetric and within normal limits in size. No hydronephrosis seen bilaterally. Urinary bladder appears within normal limits with bilateral distal ureter jets see n. IMPRESSION: Heterogeneous hyperechoic appearance of liver likely on the basis of diffuse fatty infilt ration when correlating with 2018 CT.
== END | disposition home or self-care (01) ==
LOC: RADUSWWP 08:47
PROVIDERS: ATTEND Internal Medicine
DX: R93.2 Abnormal findings on diagnostic imaging of liver and biliary tract (principal)
CPT/HCPCS: 76705; 76770

== ENCOUNTER → 2021-06-23 | Outpatient (CLI) | payer MEDICARE ==
[2021-06-23 21:23] LABS: Calcium 10.2 mg/dL (8.7-10.3)
== END | disposition home or self-care (01) ==
LOC: LABWHC1 11:49
PROVIDERS: ATTEND Psychiatry & Neurology Pain Medicine
DX: M85.80 Other specified disorders of bone density and structure, unspecified site (principal)
CPT/HCPCS: 36415; 82306; 82310; 83970

== ENCOUNTER → 2021-11-05 | Outpatient (CLI) | payer MEDICARE ==
--- NOTE | 2021-11-05 16:06 | XR ---
Left RIBS and 2 view chest x-ray HISTORY: Anterior rib pain, R07.9 R52 2 views of the chest, 4 views of the left ribs, comparison to prior chest x-ray 10/31/2014 Left ribs show no displaced fracture. There is no evident pneumothorax or pleural effusion, no eviden t airspace disease. Postop changes are noted to the cervical spine. Aorta is dense. Cardiac mediastin al silhouette is within normal limits. There is thoracic spondylosis. IMPRESSION: No acute abnormality. Bone scan could be performed for increased sensitivity if occult fr actures suspected clinically.
== END | disposition home or self-care (01) ==
LOC: RADXRMAIN 15:20
PROVIDERS: ATTEND Internal Medicine
DX: R07.9 Chest pain, unspecified (principal); R07.81 Pleurodynia
CPT/HCPCS: 71046

== ENCOUNTER → 2021-12-04 | Outpatient (CLI) | payer MEDICARE ==
[2021-12-04 22:46] LABS: African American GFR (CKD) 91.8 (60.0-200.0); Anion Gap 11.7 mmol/L (10.00-18.00); Blood Urea Nitrogen 10.5 mg/dL (9.0-27.0); Carbon Dioxide 24.3 mmol/L (20.0-27.5); Non-African American GFR(CKD) 79.2 (60.0-200.0); Potassium 5.2 mmol/L (3.5-5.5)
[2021-12-04 22:52] LABS: HCT 47.5 % (39.6-50.0); HGB 15.9 g/dL (13.0-17.0); MCH 31.1 pg (27.0-32.0); MCHC 33.5 g/dL (32.0-37.0); Mean Platelet Volume 10.5 fL (9.5-12.2); NRBC Per 100 WBC 0 /100 WBCS (0.0-0.0); Platelet Count 327 X 10*3/uL (140-440); RBC 5.11 X 10*6/uL (4.40-5.60); RDW 12.9 % (11.5-14.5); WBC 10.16 X 10*3/uL (4.50-10.00)
== END | disposition home or self-care (01) ==
LOC: LABPAT 15:25
PROVIDERS: ATTEND Internal Medicine Interventional Cardiology
DX: Z01.812 Encounter for preprocedural laboratory examination (principal); I25.10 Atherosclerotic heart disease of native coronary artery without angina pectoris
CPT/HCPCS: 80051; 82565; 84520; 85027

== ENCOUNTER → 2022-01-19 | Outpatient (CLI) | payer MEDICARE ==
--- NOTE | 2022-01-20 06:12 | CT ---
EXAMINATION TYPE: CT abdomen pelvis wo con DATE OF EXAM: 01/19/2022 HISTORY: RUQ pain, hematuria CT DLP: 441.7 mGycm. Automated Exposure Control for Dose Reduction was Utilized. TECHNIQUE: CT scan of the abdomen and pelvis is performed without oral or IV contrast. COMPARISON: CT abdomen and pelvis September 15, 2017 FINDINGS: Within the limitations of a non-contrast study, the following observations are made. LUNG BASES: Coronary artery calcification in the RCA distribution is redemonstrated. LIVER/GB: Gallbladder not seen and presumed surgically absent. This is new from prior study PANCREAS: No significant abnormality is seen. SPLEEN: No significant abnormality is seen. ADRENALS: Stable slight nodularity to the anterior limb left adrenal gland axial image 45 favored saritha ign lipid rich adenoma. KIDNEYS: No renal calculi or hydronephrosis seen bilaterally. New 8 mm elongated calcification in the ir level of posterior inferior bladder could reflect intraluminal bladder calculus versus calculus th at has entered the prostatic portion of the urethra. BOWEL: No suspicious bile dilatation. Normal-appearing appendix from the cecum incidentally noted. GENITAL ORGANS: Enlarged prostate consistent with BPH redemonstrated. LYMPH NODES: No greater than 1cm abdominal or pelvic lymph nodes are appreciated. OSSEOUS STRUCTURES: New mild height loss involving the superior T11 endplate. OTHER: Numerous coils from inguinal hernia repair surgery overlie the anterior mid to lower pelvic wa ll similar to prior. Small fat-containing right greater than left inguinal hernia are present however . Moderate to severe calcified plaque abdominal aorta extends into iliac branch vessels IMPRESSION: Suspect new 8 mm calculus likely dependently in the inferior bladder versus entering the prostatic urethra. Advise urology referral.
== END | disposition home or self-care (01) ==
LOC: RADCTMAIN 17:16
PROVIDERS: ATTEND Internal Medicine
DX: R10.11 Right upper quadrant pain (principal); R31.9 Hematuria, unspecified
CPT/HCPCS: 74176

== ENCOUNTER → 2022-05-15 | Outpatient (CLI) | payer MEDICARE ==
--- NOTE | 2022-05-15 10:00 | USB ---
Reason for Exam: Clinical finding. Findings: The whole breast of the left breast, the axilla of the left breast and the retroareolar of the left breast were scanned. Mild gynecomastia noted. At the site of clinical concern there is ill-defined lipoma suggested. No solid masses seen.. Overall Assessment: Benign, BI-RAD 2 Electronically signed and approved by: Ho Cedeno M.D. Radiologis
== END | disposition home or self-care (01) ==
LOC: RADUSWWP 09:16
PROVIDERS: ATTEND Internal Medicine
DX: N63.10 Unspecified lump in the right breast, unspecified quadrant (principal)

== ENCOUNTER → 2022-12-25 | Outpatient (CLI) | payer MEDICARE ==
--- NOTE | 2022-12-25 16:03 | CTL ---
EXAMINATION TYPE: CT Low Dose Lung DATE OF EXAM ORDERED: 12/25/2022 HISTORY: Long-term tobacco use. Lung cancer screening CT DLP: 70.[address] CTDI: 2.1 mGy Automated exposure control for dose reduction was used. SCREENING VISIT: Baseline COMPARISON: None TECHNIQUE: Low dose computed tomography scan was performed through the chest at 1 mm thick sections a nd reconstructed images in multiple planes at 1 mm and [address] DIAGNOSTIC QUALITY: Satisfactory FINDINGS: LUNG NODULES: Present, detailed below: There is punctate 1 to 2 mm peripheral inferior right upper lobe nodule axial image 161. No greater than 5 mm pulmonary nodules. LUNGS: COPD: Severity: Mild Fibrosis: Severity: None Lymph nodes: None. Other findings: None. RIGHT PLEURAL SPACE: Effusion: None Calcification: None Thickening: None Pneumothorax: None LEFT PLEURAL SPACE: Effusion: None Calcification: None Thickening: None Pneumothorax: None HEART: Heart Size: Normal Coronary Calcification: Moderate to severe three-vessel Pericardial Effusion: None OTHER FINDINGS: Upper abdomen: None Bony thorax: Multilevel spurring in the lower thoracic spine. Supraclavicular region: Heterogeneous slightly enlarged thyroid gland. Correlate for diffuse thyroid goiter. Other: Tiny degree of asymmetric right-sided gynecomastia axial image 29 series 4 IMPRESSION: Mild emphysematous change without significant greater than [address] LUNG RAD AND [address] CHEST RECOMMENDATION: Lung-Rad 2 Benign Appearance or Behavior: Continue annual sc reening with LDCT in 12 months. S Modifier (other clinically significant findings): S Enlarged thyroid gland felt present. Correlate for diffuse goiter and/or hyperthyroidism.
== END | disposition home or self-care (01) ==
LOC: RADCTMAIN 12:07
PROVIDERS: ATTEND Internal Medicine
DX: Z12.2 Encounter for screening for malignant neoplasm of respiratory organs (principal); F17.210 Nicotine dependence, cigarettes, uncomplicated; J43.9 Emphysema, unspecified
CPT/HCPCS: 71271

== ENCOUNTER → 2023-01-21 | Outpatient (CLI) | payer MEDICARE ==
--- NOTE | 2023-01-21 17:52 | US ---
EXAMINATION TYPE: US thyroid st tissue head/neck DATE OF EXAM: 01/21/2023 COMPARISON: CT on 12/25/22. CLINICAL INDICATION: Male, 67 years old with history of E04.9 NONTOXIC GOITER; goiter, neck pain GLAND SIZE: Right Lobe: 6.0x2.4x1.7 cm Overall Parenchyma: homogenous Left Lobe: 5.2x1.5x2.0 cm Overall Parenchyma: homogeneous Isthmus Thickness: 1.4 cm NODULES RIGHT: # of nodules measured on right: 1 1. 0.9 X 0.7 x 0.8 cm, lower lateral, solid or almost completely solid, hypoechoic TR 4 nodule, whi ch is as wide as it is tall, with ill-defined margins, without echogenic foci. LEFT: # of nodules measured on left: 2 1. 0.7 X 0.7 x 0.4 cm, upper mid, solid or almost completely solid, hypoechoic TR4 nodule, which is not wider than tall, with ill-defined margins, without echogenic foci. 2. 0.6 X 0.4 x 0.5 cm, lower medial, solid or almost completely solid, hypoechoic TR4 nodule, whic h is wider than tall, with ill-defined margins, without echogenic foci. ISTHMUS: # of nodules measured in the isthmus: 0 Bilateral neck scanned, no evidence of lymphadenopathy. Blockman notes: Technically difficult exam. Patient has hardware surgically placed in cervical spi ne and was unable to turn his head or lift his chin for this exam making transducer contact and place ment difficult. IMPRESSION: Technically difficult exam due to patient's recent surgery. Mild thyromegaly suggesting goiter. A few small solid TR4 nodules are present, largest measuring 9 mm. These can be reassessed at follow-up.
== END | disposition home or self-care (01) ==
LOC: RADUSWWP 13:12
PROVIDERS: ATTEND Internal Medicine
DX: E04.2 Nontoxic multinodular goiter (principal); M54.2 Cervicalgia
CPT/HCPCS: 76536

== ENCOUNTER 2023-04-16 06:34 | Day surgery (SDC) | payer MEDICARE ==
[2023-04-05 15:35] VITALS: BMI 25.8
[~2023-04-16 06:34] MED LIST changes: -ALPRAZolam 0.25 MG TAB PO PRN; -ASPIRIN 325 MG TAB PO STA; -ATORVASTATIN 80 MG TAB PO STA; +LACTATED RINGERS 1,000 ML IV SCH; -NITROGLYCERIN SL TABS 0.4 MG TAB SUBLINGUAL PRN; -SODIUM CHLORIDE 0.9% 1,000 ML in EMPTY BAG 1 BAG IV ONE
[2023-04-16 07:25] VITALS: TEMP 97
[2023-04-16] MEDS ORDERED: ONDANSETRON 4 MG/2 ML VIAL ONE (07:35)
[2023-04-16] MEDS ORDERED: ONDANSETRON 4 MG/2 ML VIAL IVP ONE (07:37)
[2023-04-16] MEDS ORDERED: PROPOFOL 10 MG/ML 20 ML VIAL IV ONE (07:50)
[2023-04-16] MEDS ORDERED: MIDAZOLAM 2 MG/2 ML VIAL ONE (07:50)
[2023-04-16 08:37] VITALS: RESP 16
--- NOTE | 2023-04-16 08:48 | P.PCN ---
Date of Procedure: 04/16/23 Procedure(s) Performed: Brief history: Patient is a pleasant 67-year-old white male scheduled for an elective upper endoscopy as well as colonoscopy as a part of evaluation of right upper quadrant abdominal pain for the last 6 months duration. He was also noted to have positive:cologuad and hence scheduled for screening colonoscopy Procedure performed: Esophagogastroduodenoscopy with biopsy Colonoscopy with snare polypectomy Preoperative diagnosis: Right upper quadrant abdominal pain Screening for colon cancer Anesthesia: MAC Procedure: After informed consent was obtained from the patient was brought into the endoscopy unit and IV sedation was administered by anesthesia under continuous monitoring. Initially upper endoscopy was done. The Olympus GF 160 video endoscope was inserted inserted into the mouth and esophagus intubated without any difficulty and was gradually advanced into the stomach and duodenum and carefully examined. The bulb and second part of the duodenum appeared normal. The scope was then withdrawn into the stomach adequately insufflated with air and upon careful examination the antrum and body, cardia and fundus appeared normal. The scope was then withdrawn into the esophagus. The GE junction was located at 40 cm to the incisors. It appeared regular with no erythema erosions or ulcerations. Rest of the esophagus appeared normal. Patient tolerated the procedure well. At this time the patient continued to remain sedation. Initial digital rectal examination was normal. Olympus CF 160 video colonoscope was then inserted into the rectum and gradually advanced to the cecum without any difficulty. Careful examination was performed as the scope was gradually being withdrawn. The prep was excellent. The cecum, appeared normal. In the setting colon there was a 1 cm flat polyp removed by snare polypectomy. In the transverse colon with a 6 polyps measuring between 5 mm to 7 mm in size removed by snare polypectomy. In the descending colon there were 5 polyps measuring between 5 mm to 117 size removed by snare polypectomy. In the sigmoid colon there was a 7 mm and 1 cm polyp removed by snare polypectomy. In the rectum there was a 6 mm polyp removed by snare polypectomy. Retroflexion was performed in the rectum and no lesions were noted. Patient tolerated the procedure well. Impression: 1. Upper endoscopy revealed antral erosive gastritis but no evidence of esophagitis or peptic ulcer disease 2. Colonoscopy revealed; a) 1.5 cm flat descending colon polyps is post polypectomy b) 6 polyps in the transverse colon measuring between 5 mm to 7 mm in size removed by snare polypectomy. c) 5 polyps in the descending colon measuring between 5 mm to 1 cm in size removed by snare polypectomy d) 5 mm and 1 cm; polyp status post polypectomy e) 7 mm rectal polyp status post polypectomy. Recommendations: Findings of this examination were discussed with the patient as well as his family. He was advised to follow with the biopsy results. If the biopsy results adenoma he can have a repeat colonoscopy in 3 years.
[2023-04-16 09:05] VITALS: BP 122/78; PULSE 88
== END 2023-04-16 09:30 | disposition home or self-care (01) ==
LOC: ORWHC2ENDO 06:34
PROVIDERS: ATTEND Internal Medicine Gastroenterology
DX: D12.2 Benign neoplasm of ascending colon (principal); K21.9 Gastro-esophageal reflux disease without esophagitis; D12.3 Benign neoplasm of transverse colon; K29.50 Unspecified chronic gastritis without bleeding; D12.4 Benign neoplasm of descending colon; I25.2 Old myocardial infarction; I10 Essential (primary) hypertension; E78.5 Hyperlipidemia, unspecified; D12.5 Benign neoplasm of sigmoid colon; D12.8 Benign neoplasm of rectum; F17.200 Nicotine dependence, unspecified, uncomplicated; I48.91 Unspecified atrial fibrillation; Z79.02 Long term (current) use of antithrombotics/antiplatelets; Z88.6 Allergy status to analgesic agent; Z79.899 Other long term (current) drug therapy; Z79.82 Long term (current) use of aspirin; Z88.0 Allergy status to penicillin
CPT/HCPCS: 88305; 45385; 43239; J2250; J2405; J2704

== ENCOUNTER → 2023-04-27 | Outpatient (CLI) | payer MEDICARE ==
--- NOTE | 2023-04-27 11:31 | XR ---
EXAMINATION TYPE: XR chest 2V DATE OF EXAM: 04/27/2023 COMPARISON: 11/05/2021 TECHNIQUE: PA and lateral views submitted. HISTORY: Emphysema FINDINGS: The lungs are clear and there is no pneumothorax, pleural effusion, or focal pneumonia. Heart size normal and no overt failure. Osseous structures demonstrate hypertrophic and degenerative changes of the spine. Hyperinflation of the lungs. IMPRESSION: 1. No acute process. Correlate for COPD.
== END | disposition home or self-care (01) ==
LOC: RADXRWHC 09:30
PROVIDERS: ATTEND Internal Medicine
DX: J43.9 Emphysema, unspecified (principal)
CPT/HCPCS: 71046

== ENCOUNTER → 2023-04-27 | Outpatient (CLI) | payer MEDICARE ==
[2023-04-27 15:41] LABS: Basophils # (A) 0.03 X 10*3/uL (0.00-0.10); Basophils % (A) 0.3 %; Eosinophils # (A) 0.05 X 10*3/uL (0.04-0.35); Eosinophils % (A) 0.4 %; HCT 41.6 % (39.6-50.0); Lymphocytes # (A) 1.93 X 10*3/uL (0.90-5.00); Lymphocytes % (A) 16.7 %; MCH 31.5 pg (27.0-32.0); MCHC 33.7 d/dL (32.0-37.0); MCV 93.5 FL (80.0-97.0); Mean Platelet Volume 10.1 FL (9.5-12.2); Monocytes # (A) 0.88 X 10*3/uL (0.20-1.00); Monocytes % (A) 7.6 %; NRBC Per 100 WBC 0 X 10*3/uL (0.00-0.01); Neutrophils # (A) 8.61 X 10*3/uL (1.80-7.70); Neutrophils % (A) 74.5 %; Platelet Count 336 X 10*3/uL (140-440); RBC 4.45 X 10*6/uL (4.40-5.60); RDW 13.4 % (11.5-14.5); WBC 11.56 X 10*3/uL (4.50-10.00)
== END | disposition home or self-care (01) ==
LOC: LABWHC1 09:27
PROVIDERS: ATTEND Internal Medicine Gastroenterology
DX: K62.5 Hemorrhage of anus and rectum (principal)
CPT/HCPCS: 36415; 85025

== ENCOUNTER → 2023-05-18 | Outpatient (CLI) | payer MEDICARE | LOC: CPPFTMAIN 13:45 | PROVIDERS: ATTEND Internal Medicine | DX: J43.9 Emphysema, unspecified (principal); F17.210 Nicotine dependence, cigarettes, uncomplicated; Z88.0 Allergy status to penicillin; Z88.8 Allergy status to other drugs, medicaments and biological substances | CPT/HCPCS: 94060; 94726; 94729 ==

== ENCOUNTER → 2023-05-21 | Outpatient (CLI) | payer MEDICARE ==
--- NOTE | 2023-05-21 07:44 | US ---
EXAMINATION TYPE: US abdomen complete DATE OF EXAM: 05/21/2023 COMPARISON: US & CT CLINICAL INDICATION: Male, 67 years old with history of K21.9 GERD; GERD, GB removed TECHNIQUE: Multiple sonographic images of the abdomen are obtained. 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 The intrahepatic portion of the IVC and proximal abdominal aorta are within normal limits. Common bile duct is unremarkable. The visualized portions of the pancreas are homo genous. The spleen is unremarkable. Kidneys are symmetric and free of hydronephrosis. No renal les ions are seen. IMPRESSION: No significant abnormality seen.
== END | disposition home or self-care (01) ==
LOC: RADUSWWP 06:45
PROVIDERS: ATTEND Internal Medicine
DX: K21.9 Gastro-esophageal reflux disease without esophagitis (principal); Z90.49 Acquired absence of other specified parts of digestive tract
CPT/HCPCS: 76700

== ENCOUNTER → 2023-09-03 | Outpatient (CLI) | payer MEDICARE ==
--- NOTE | 2023-09-03 14:00 | CT ---
EXAMINATION TYPE: CT abdomen pelvis wo con DATE OF EXAM: 09/03/2023 COMPARISON: 01/19/2022 HISTORY: RT side abdominal pain, hx renal stones CT DLP: 859 mGycm Automated exposure control for dose reduction was used. TECHNIQUE: Helical acquisition of images was performed from the lung bases through the pelvis. FINDINGS: Lung bases are clear. There are surgical absence of gallbladder. There is no organomegaly involving the solid visceral organs of the upper abdomen. There is no renal calcification or hydronephrosis. The caliber the abdominal aorta is normal. The bowel loops are normal in caliber and there is no dilatation or obstruction. No inflammatory tyler ges identified in the mesentery and there is no free intraperitoneal air or fluid. There is an 11 mm calcification in the midline posterior urinary bladder possibly within the proximal urethra. It is unchanged compared to previous. There is moderate prostatic hypertrophy and scattered prostatic calcification. There are postsurgical changes of mesh hernia repair in the lower abdomen. No focal osseous lesions are seen. IMPRESSION: 1. Persistent 11 mm calcification in the region of the posterior urinary bladder near the anterior bl adder neck possibly within the proximal urethra. Is unchanged compared to previous. 2. no renal calcifications or hydronephrosis. 3. cholecystectomy and mesh hernia repair the lower abdomen.
== END | disposition home or self-care (01) ==
LOC: RADCTMAIN 10:54
PROVIDERS: ATTEND Internal Medicine
DX: N39.0 Urinary tract infection, site not specified (principal); N32.89 Other specified disorders of bladder; Z87.442 Personal history of urinary calculi; Z90.49 Acquired absence of other specified parts of digestive tract
CPT/HCPCS: 74176

== ENCOUNTER 2023-10-24 14:39 | Observation (INO) | payer MEDICARE ==
[2023-10-24] MEDS: MORPHINE SULFATE 4 MG/ML SYRINGE IV STA (15:03)
[2023-10-24 15:09] LABS: Basophils # (A) 0.1 k/uL (0-0.2); Basophils % (A) 0 %; Eosinophils # (A) 0.1 k/uL (0-0.7); Eosinophils % (A) 1 %; HCT 43.4 % (39.0-53.0); HGB 14.4 gm/dL (13.0-17.5); Lymphocytes # (A) 2.4 k/uL (1.0-4.8); Lymphocytes % (A) 15 %; MCH 30.2 pg (25.0-35.0); MCHC 33.3 g/dL (31.0-37.0); MCV 90.8 fL (80.0-100.0); Monocytes # (A) 0.5 k/uL (0-1.0); Monocytes % (A) 3 %; Neutrophils # (A) 13.5 k/uL (1.3-7.7); Neutrophils % (A) 81 %; Platelet Count 305 k/uL (150-450); RBC 4.78 m/uL (4.30-5.90); RDW 14.3 % (11.5-15.5); WBC 16.7 k/uL (3.8-10.6)
[2023-10-24 15:21] LABS: ALT 23 U/L (4-49); AST 34 U/L (17-59); African American GFR (CKD) >90 (>60 ml/min/1.73 sqM); Albumin 4.5 g/dL (3.5-5.0); Alkaline Phosphatase 81 U/L (38-126); Anion Gap 6 mmol/L; Blood Urea Nitrogen 9 mg/dL (9-20); Calcium 9.8 mg/dL (8.4-10.2); Carbon Dioxide 27 mmol/L (22-30); Chloride 107 mmol/L (98-107); Glucose 101 mg/dL (74-99); Lipase 127 U/L (23-300); Magnesium 2.2 mg/dL (1.6-2.3); Non-African American GFR(CKD) >90 (>60 ml/min/1.73 sqM); Potassium 4.1 mmol/L (3.5-5.1); Sodium 140 mmol/L (137-145); Total Bilirubin 0.5 mg/dL (0.2-1.3); Total Protein 7.3 g/dL (6.3-8.2)
[2023-10-24 15:27] LABS: INR 0.9 (<1.2); Partial Thromboplastin Time 27.1 sec (22.0-30.0); Prothrombin Time 10.3 sec (10.0-12.5)
--- NOTE | 2023-10-24 15:32 | XR ---
EXAMINATION TYPE: XR chest 2V DATE OF EXAM: 10/24/2023 3:01 PM CLINICAL INDICATION:Male, 67 years old with history of Chest Pain; COMPARISON: Chest radiographs from 04/27/2023. TECHNIQUE: XR chest 2V Frontal and lateral views of the chest. FINDINGS: Lungs/Pleura: There is no evidence of pleural effusion, focal consolidation, or pneumothorax. Pulmonary vascularity: Unremarkable. Heart/mediastinum: Cardiomediastinal silhouette is unremarkable. Musculoskeletal: No acute osseous pathology. There is fixation hardware in the lower cervical spine. IMPRESSION: No acute cardiopulmonary disease/process.
--- NOTE | 2023-10-24 15:52 | ED ---
Chest Pain HPI - General Chief Complaint: Chest Pain Stated Complaint: Chest pain Time Seen by Provider: 10/24/23 14:40 Source: patient, EMS Mode of arrival: EMS Limitations: no limitations - History of Present Illness Initial Comments: 67-year-old male with past medical history of atherosclerotic coronary artery disease without stent placement who presents to the ED complaining of chest pain. Chest pain was sudden onset while washing dishes around noon. He does have history of coronary disease however does not have any stents in his heart. He follows with Dr. Culp. States that he recently went for a cardiac MRI and was told that he would need stent placement. He has an upcoming with Dr. Culp. Pain is described as a pressure sensation which radiates to his left arm. It is graded as 7 out of 10. He did not take anything for the pain. Reports that he is supposed to be on Imdur however does not take it because it makes him sick. EMS provided him with 4 chewable aspirins. He denies ripping or tearing station to his back. No shortness of breath. No other alleviating, precipitating or modifying factors - Related Data Home Medications Medication Instructions Recorded Confirmed Aspirin [Children's Aspirin] 81 mg PO DAILY 04/12/20 10/24/23 Losartan [Cozaar] 25 mg PO DAILY 04/12/20 10/24/23 Losartan [Cozaar] 50 mg PO HS 04/12/20 10/24/23 Metoprolol Succinate (ER) [Toprol 12.5 mg PO DAILY 12/08/21 10/24/23 XL] Multivitamins, Thera [Multivitamin 1 tab PO DAILY 12/08/21 10/24/23 (formulary)] Rosuvastatin Calcium [Crestor] 40 mg PO Q48H 12/08/21 10/24/23 Pantoprazole [Protonix] 40 mg PO DAILY 04/05/23 10/24/23 Spironolactone 25 mg PO DAILY 04/05/23 10/24/23 Acetaminophen Tab [Tylenol] 1,000 mg PO Q6HR PRN 10/24/23 10/24/23 Cholecalciferol (Vitamin D3) 50 mcg PO DAILY 10/24/23 10/24/23 [Vitamin D3 (50 Mcg = 2000 Iu)] Cyanocobalamin (Vitamin B-12) 1,000 mcg PO DAILY 10/24/23 10/24/23 [Vitamin B-12] Docusate [Colace] 100 mg PO DAILY 10/24/23 10/24/23 Zinc Gluconate [Zinc] 50 mg PO Q48H 10/24/23 10/24/23 Previous Rx's Medication Instructions Recorded Clopidogrel [Plavix] 75 mg PO DAILY #90 tab 04/20/20 Allergies Allergy/AdvReac Type Severity Reaction Status Date / Time ANGEL LUIS Inhibitors Allergy Unknown Verified 10/24/23 16:38 naproxen [From Naprosyn] Allergy Unknown Verified 10/24/23 16:38 Penicillins Allergy Unknown Verified 10/24/23 16:38 atorvastatin [From Lipitor] AdvReac Myalgia Verified 10/25/23 10:13 Review of Systems ROS Statement: Those systems with pertinent positive or pertinent negative responses have been documented in the HPI. ROS Other: All systems not noted in ROS Statement are negative. Past Medical History Past Medical History: Chest Pain / Angina, GERD/Reflux, Hyperlipidemia, Hypertension, Liver Disease, Myocardial Infarction (PR), Osteoarthritis (OA), Pneumonia, Thyroid Disorder Additional Past Medical History / Comment(s): Hx kidney stones. SOB w/exertion on and off for last few months. 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 PR's - unknown when. Fatty liver. Bladder stone. Hx migraines, none in a while. 3 thyroid nodules. Last Myocardial Infarction Date:: Unknown History of Any Multi-Drug Resistant Organisms: None Reported Past Surgical History: Back Surgery, Cholecystectomy, Heart Catheterization With Stent, Hernia Repair, Orthopedic Surgery Additional Past Surgical History / Comment(s): Neck surgery X3, right hydrocele repair, bilateral inguinal hernia repair, carpel tunnel repair bilaterally. Past Anesthesia/Blood Transfusion Reactions: Postoperative Nausea & Vomiting (PONV) Date of Last Stent Placement:: Unknown Past Psychological History: No Psychological Hx Reported Smoking Status: Current every day smoker, Heavy tobacco smoker Past Alcohol Use History: Rare Past Drug Use History: None Reported - Past Family History Mother Family Medical History: Cancer, Congestive Heart Failure (CHF), Coronary Artery Disease (CAD) Additional Family Medical History / Comment(s): Bypass surgery, low blood sugar, skin cancer. Father Family Medical History: Coronary Artery Disease (CAD), Deep Vein Thrombosis (DVT) Additional Family Medical History / Comment(s): Bypass surgery. General Exam Limitations: no limitations General appearance: alert, in no apparent distress Head exam: Present: atraumatic, normocephalic, normal inspection Eye exam: Present: normal appearance, PERRL, EOMI. Absent: scleral icterus, conjunctival injection, periorbital swelling ENT exam: Present: normal exam, mucous membranes moist Neck exam: Present: normal inspection. Absent: tenderness, meningismus, lymphadenopathy Respiratory exam: Present: normal lung sounds bilaterally. Absent: respiratory distress, wheezes, rales, rhonchi, stridor Cardiovascular Exam: Present: regular rate, normal rhythm, normal heart sounds. Absent: systolic murmur, diastolic murmur, rubs, gallop, clicks GI/Abdominal exam: Present: soft, normal bowel sounds. Absent: distended, tenderness, guarding, rebound, rigid Extremities exam: Present: normal inspection, full ROM, normal capillary refill. Absent: tenderness, pedal edema, joint swelling, calf tenderness Back exam: Present: normal inspection Neurological exam: Present: alert, oriented X3, CN II-XII intact Psychiatric exam: Present: normal affect, normal mood Skin exam: Present: warm, dry, intact, normal color. Absent: rash Course Vital Signs 10/24/23 10/24/23 14:40 16:55 Temperature 98.2 F Pulse Rate 91 81 Respiratory 18 18 Rate Blood Pressure 147/80 130/76 O2 Sat by Pulse 99 96 Oximetry Chest Pain MDM - MDM Was pt. sent in by a medical professional or institution (, PA, NUTRITIONISTS, urgent care, hospital, or long term...) When possible be specific @ -No Did you speak to anyone other than the patient for history (EMS, parent, family, police, friend...)? What history was obtained from this source @ -EMS Did you review nursing and triage notes (agree or disagree)? Why? @ -I reviewed and agree with nursing and triage notes Were old charts reviewed (outside hosp., previous admission, EMS record, old EKG, old radiological studies, urgent care reports/EKG's, long term records)? Report findings @ -No old charts were reviewed Differential Diagnosis (chest pain, altered mental status, abdominal pain women, abdominal pain men, vaginal bleeding, weakness, fever, dyspnea, syncope, headache, dizziness, GI bleed, back pain, seizure, CVA, palpatations, mental health, musculoskeletal)? @ -Differential Chest Pain: Stable Angina, Unstable Angina, STEMI, NSTEMI Aortic Dissection, Pneumothorax, Musculoskeletal, Esophageal Spasm GERD, Cholecystitis, Pancreatitis, Zoster, this is not meant to be an all-inclusive list. EKG interpreted by me (3pts min.). @ -Yes and demonstrates sinus rhythm with a rate of 80. OH interval 161. QRS 117. QTc of 409. No acute ST segment elevations or depressions X-rays interpreted by me (1pt min.). @ -Yes and demonstrates no acute process CT interpreted by me (1pt min.). @ -None done U/S interpreted by me (1pt. min.). @ -None done What testing was considered but not performed or refused? (CT, X-rays, U/S, labs)? Why? @ -None What meds were considered but not given or refused? Why? @ -None Did you discuss the management of the patient with other professionals (professionals i.e. , PA, NUTRITIONISTS, lab, RT, psych nurse, health care social worker, line department supervisor, teacher, mobile patrol officer, foster care case manager)? Give summary @ -Spoke with Jan gabriel [facility], [place] Was smoking cessation discussed for >3mins.? @ -No Was critical care preformed (if so, how long)? @ -No Were there social determinants of health that impacted care today? How? (Homelessness, low income, unemployed, alcoholism, drug addiction, transportation, low edu. Level, literacy, decrease access to med. care, shelter, rehab)? @ -No Was there de-escalation of care discussed even if they declined (Discuss DNR or withdrawal of care, Hospice)? DNR status @ -No What co-morbidities impacted this encounter? (DM, HTN, Smoking, COPD, CAD, Cancer, CVA, ARF, Chemo, Hep., AIDS, mental health diagnosis, sleep apnea, morbid obesity)? @ -Atherosclerotic coronary artery disease Was patient admitted / discharged? Hospital course, mention meds given and route, prescriptions, significant lab abnormalities, going to OR and other pertinent info. @ -Admitted. Upon arrival patient was placed into room 2. Thorough history and physical exam was performed. Patient placed on continuous pulse ox and cardiac monitoring. Twelve-lead EKG is obtained. Laboratory studies are conducted. Chest x-ray was performed. Due to patient's history of coronary disease with current chest pain I did recommend admission. Patient was agreeable to this. Spoke with Jan bahena who will admit the patient Undiagnosed new problem with uncertain prognosis? @ -Yes Drug Therapy requiring intensive monitoring for toxicity (Heparin, Nitro, Insulin, Cardizem)? @ -No Were any procedures done? @ -No Diagnosis/symptom? @ -Acute chest pain, history of atherosclerotic coronary artery disease Acute, or Chronic, or Acute on Chronic? @ -Acute Uncomplicated (without systemic symptoms) or Complicated (systemic symptoms)? @ -Complicated Side effects of treatment? @ -No Exacerbation, Progression, or Severe Exacerbation? @ -No Poses a threat to life or bodily function? How? (Chest pain, [place], PR, pneumonia, PE, COPD, DKA, ARF, appy, cholecystitis, CVA, Diverticulitis, Homicidal, Suicidal, threat to staff... and all critical care pts) @ -Yes patient presents with chest pain with history of coronary disease Disposition Clinical Impression: Chest pain, ASCVD (arteriosclerotic cardiovascular disease), Leukocytosis Disposition: ADMITTED IP TO THIS HOSP Condition: Stable Is patient prescribed a controlled substance at d/c from ED?: No Time of Disposition: 16:25 Decision to Admit Reason: Admit from EC Decision Date: 10/24/23 Decision Time: 16:25
[2023-10-24] MEDS ORDERED: NALOXONE 0.4 MG/ML 1 ML VIAL IV PRN (16:26)
[2023-10-24] MEDS ORDERED: NITROGLYCERIN SL TABS 0.4 MG TAB SUBLINGUAL PRN (16:28)
--- NOTE | 2023-10-24 17:57 | P.HPIM ---
History of Present Illness H&P Date: 10/24/23 67 year old M with PMH of CAD post stent, GERD, HLDA, HTN, smoker. He presents to the ED for chest pain that started while washing dishes around 12PM. Left sided, described as pins and needles later turned into a dull pain. Pain was non radiating. Not exacerbated with movement or deep inspiration. Denies any shortness of breath, diaphoresis or palpitations. Symptoms persisted which prompted him to come to the ED. Smokes 3 pack of cigarettes daily. Cardiac cath done in 2019 showed chronic total occlusion RVA with collaterals, 80% LCx, 60-70% LAD, status post stenting of the LCx. In the ED he underwent extensive evaluation. BP 147/80, HR 91, T 98.2F, 99% on RA. CBC WBC 16.7. Coag panel within normal limits. CMP glu 101. Troponin 0.015. BNP 127. CXR no acute process. EKG sinus rhythm with IV conduction delay. Patient is admitted for chest pain, rule out ACS, Cardiology consultation. General: non toxic, no distress, appears at stated age Derm: warm, dry Head: atraumatic, normocephalic Eyes: EOMI, no lid lag, anicteric sclera Cardiovascular: S1S2 reg, no murmur Lungs: Decreased BS bilateral, no rhonchi, no rales , no accessory muscle use Ext: no gross muscle atrophy, no edema, no contractures Neuro: no focal neuro deficits Psych: Alert, oriented, appropriate affect Based on my assessment of this patient, this patient meets a high complexity level of care. Patient has an acute diagnosis of chest pain with history of CAD which poses a threat to life or bodily function. Chest pain: Trend Trop/EKG to rule out ACS. Telemetry monitoring. ASA 81 mg PO QD. Crestor 40 mg PO Q48H. Metoprolol 12.5 mg PO QD. Echocardiogram. Cardiology consult. Leukocytosis: Chronic per patient. Follows Dr. Gregg. Smoker: Nicotine patch 21 mg transdermal Q24H. Chronic conditions: GERD, HLDA, HTN CODE STATUS: FULL CODE. DVT Prophylaxis: Lovenox SQ GI Prophylaxis: Protonix Designated medical POA if patient is not able to make medical decisions for themselves: Sister Jeanine [phone] I have reviewed the following data governance consultant notes: I have reviewed the results of the following tests: As above. I have ordered the following tests: As above. I have discussed the care of this patient with the following independent historian: I have independently interpreted the following test below: EKG. CXR I have discussed the management of this patient with the following physician: Past Medical History Past Medical History: Chest Pain / Angina, GERD/Reflux, Hyperlipidemia, Hypertension, Liver Disease, Myocardial Infarction ([place]), Osteoarthritis (OA), Pneumonia, Thyroid Disorder Additional Past Medical History / Comment(s): Hx kidney stones. SOB w/exertion on and off for last few months. 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 TX's - unknown when. Fatty liver. Bladder stone. Hx migraines, none in a while. 3 thyroid nodules. Last Myocardial Infarction Date:: Unknown History of Any Multi-Drug Resistant Organisms: None Reported Past Surgical History: Back Surgery, Cholecystectomy, Heart Catheterization With Stent, Hernia Repair, Orthopedic Surgery Additional Past Surgical History / Comment(s): Neck surgery X3, right hydrocele repair, bilateral inguinal hernia repair, carpel tunnel repair bilaterally. Past Anesthesia/Blood Transfusion Reactions: Postoperative Nausea & Vomiting (PONV) Date of Last Stent Placement:: Unknown Past Psychological History: No Psychological Hx Reported Smoking Status: Current every day smoker, Heavy tobacco smoker Past Alcohol Use History: Rare Past Drug Use History: None Reported - Past Family History Mother Family Medical History: Cancer, Congestive Heart Failure (CHF), Coronary Artery Disease (CAD) Additional Family Medical History / Comment(s): Bypass surgery, low blood sugar, skin cancer. Father Family Medical History: Coronary Artery Disease (CAD), Deep Vein Thrombosis (DVT) Additional Family Medical History / Comment(s): Bypass surgery. Medications and Allergies Home Medications Medication Instructions Recorded Confirmed Type RX: Aspirin [Children's Aspirin] 81 mg PO DAILY 04/12/20 10/24/23 History RX: Losartan [Cozaar] 25 mg PO DAILY 04/12/20 10/24/23 History RX: Losartan [Cozaar] 50 mg PO HS 04/12/20 10/24/23 History RX: Clopidogrel [Plavix] 75 mg PO DAILY #90 tab 04/20/20 10/24/23 Rx RX: Metoprolol Succinate (ER) 12.5 mg PO DAILY 12/08/21 10/24/23 History [Toprol XL] RX: Multivitamins, Thera 1 tab PO DAILY 12/08/21 10/24/23 History [Multivitamin (formulary)] RX: Rosuvastatin Calcium [Crestor] 40 mg PO Q48H 12/08/21 10/24/23 History Pantoprazole [Protonix] 40 mg PO DAILY 04/05/23 10/24/23 History RX: Spironolactone 25 mg PO DAILY 04/05/23 10/24/23 History Acetaminophen Tab [Tylenol Tab] 1,000 mg PO Q6HR PRN 10/24/23 10/24/23 History Cholecalciferol (Vitamin D3) 50 mcg PO DAILY 10/24/23 10/24/23 History [Vitamin D3 (50 Mcg = 2000 Iu)] Cyanocobalamin (Vitamin B-12) 1,000 mcg PO DAILY 10/24/23 10/24/23 History [Vitamin B-12] Docusate [Colace] 100 mg PO DAILY 10/24/23 10/24/23 History Zinc Gluconate [Zinc] 50 mg PO Q48H 10/24/23 10/24/23 History Allergies Allergy/AdvReac Type Severity Reaction Status Date / Time ANGEL LUIS Inhibitors Allergy Unknown Verified 10/24/23 16:38 naproxen [From Naprosyn] Allergy Unknown Verified 10/24/23 16:38 Penicillins Allergy Unknown Verified 10/24/23 16:38 Physical Exam Vitals: Vital Signs Temp Pulse Resp BP Pulse Ox 10/24/23 16:55 81 18 130/76 96 10/24/23 14:40 98.2 F 91 18 147/80 99 Intake and Output 10/24/23 10/24/23 10/24/23 06:59 14:59 22:59 Other: Weight 72.575 kg Results CBC & Chem 7: 10/24/23 14:55 10/24/23 14:55 Labs: Abnormal Lab Results - Last 24 Hours (Table) 10/24/23 10/24/23 Range/Units 14:55 14:55 WBC 16.7 H (3.8-10.6) k/uL Neutrophils # 13.5 H (1.3-7.7) k/uL Glucose 101 H (74-99) mg/dL
[2023-10-24] MEDS: ATORVASTATIN 80 MG TAB PO SCH (18:32)
[2023-10-24] MEDS: NICOTINE 21MG/24HR PATCH TRANSDERM STA (18:37)
[2023-10-24] MEDS: MORPHINE SULFATE 4 MG/ML SYRINGE IV PRN (20:59)
[2023-10-24] MEDS: LOSARTAN 50 MG TAB PO SCH (21:00)
[2023-10-25] MEDS: PANTOPRAZOLE 40 MG TABLET PO SCH (06:11)
[2023-10-25 06:54] LABS: Basophils % (A) 0 %; Eosinophils # (A) 0.1 k/uL (0-0.7); Eosinophils % (A) 1 %; HGB 14.8 gm/dL (13.0-17.5); Lymphocytes # (A) 1.8 k/uL (1.0-4.8); Lymphocytes % (A) 17 %; MCH 30.4 pg (25.0-35.0); MCHC 33.6 g/dL (31.0-37.0); MCV 90.6 fL (80.0-100.0); Mean Platelet Volume 8.4; Monocytes # (A) 0.7 k/uL (0-1.0); Monocytes % (A) 7 %; Neutrophils # (A) 7.6 k/uL (1.3-7.7); Neutrophils % (A) 72 %; Platelet Count 259 k/uL (150-450); RBC 4.85 m/uL (4.30-5.90); RDW 14.5 % (11.5-15.5); WBC 10.5 k/uL (3.8-10.6)
[2023-10-25 07:46] LABS: African American GFR (CKD) >90 (>60 ml/min/1.73 sqM); Anion Gap 8 mmol/L; Blood Urea Nitrogen 12 mg/dL (9-20); Calcium 9.6 mg/dL (8.4-10.2); Carbon Dioxide 21 mmol/L (22-30); Chloride 108 mmol/L (98-107); Glucose 101 mg/dL (74-99); Non-African American GFR(CKD) >90 (>60 ml/min/1.73 sqM); Sodium 137 mmol/L (137-145)
[2023-10-25 07:50] LABS: Potassium 4.6 mmol/L (3.5-5.1)
[2023-10-25] MEDS: NICOTINE 21MG/24HR PATCH TRANSDERM SCH (08:24)
[2023-10-25] MEDS: DOCUSATE 100 MG CAP PO SCH (08:24)
[2023-10-25] MEDS: SPIRONOLACTONE 25 MG TAB PO SCH (08:24)
[2023-10-25] MEDS: CLOPIDOGREL 75 MG TAB PO SCH (08:24)
[2023-10-25] MEDS: METOPROLOL SUCCINATE (ER) 25 MG TAB.ER.24H PO SCH (08:24)
[2023-10-25] MEDS: ASPIRIN 81 MG PO SCH (08:24)
[2023-10-25] MEDS: LOSARTAN 25 MG TAB PO SCH (08:24)
[2023-10-25 08:36] VITALS: RESP 15
[2023-10-25] MEDS ORDERED: ALPRAZolam 0.25 MG TAB PO PRN (09:00)
[2023-10-25] MEDS ORDERED: NITROGLYCERIN SL TABS 0.4 MG TAB SUBLINGUAL PRN (09:00)
[2023-10-25] MEDS ORDERED: ALPRAZolam 0.5 MG TAB PO PRN (09:00)
[2023-10-25] MEDS: ENOXAPARIN 40 MG/0.4 ML SYRINGE SQ SCH (09:16)
[2023-10-25] MEDS: ATORVASTATIN 80 MG TAB PO STA (09:55)
[2023-10-25] MEDS: ASPIRIN 325 MG TAB PO STA (09:55)
--- NOTE | 2023-10-25 10:33 | P.CRDCN ---
History of Present Illness Consult date: 10/25/23 Consult reason: chest pain History of present illness: History of present illness: This is a 67-year-old male patient of Dr. Soto with past medical history of coronary artery disease with prior stenting of the left circumflex, known chronic total occlusion of the RCA, ischemic cardiomyopathy, hypertension, dyslipidemia, valvular heart disease with mitral regurgitation, tobacco use and dependence, family history of premature coronary artery disease. We have been asked to evaluate the patient for chest pain. Patient states that he was doing the dishes and he felt needles in the left side of his chest. He went and sat down for a little bit then went back to the kitchen and he still had the same sensation and felt very uncomfortable. It was off and on for several episodes and then finally goes away. He states his breathing felt like it was off. He denies having any palpitations and no lower extremity edema, no PND, no orthopnea. Patient states that he walks to his mother's home about 6 times per day and he is feeling more tired than normal. He complains of a cough which is chronic and he continues to smoke. He states he has been under increased stress lately. No nausea or vomiting. No blood in his stools. He states he does have a right kidney bladder issue and he needs to see a urologist for this. EKG sinus rhythm low voltage Chest x-ray: No acute process CBC is unremarkable but initial WBC 16.7 normalized to 10.5. INR 0.9. Sodium 137, potassium 4.6, chloride 108, CO2 21, BUN 12 and creatinine 0.64. Troponins negative x 3. Blood sugar 101. Liver function test are normal. Magnesium 2.2. Lipase 127. Home cardiac medications: Aspirin 81 mg daily, Plavix 75 mg daily, losartan 25 mg in the morning and 50 in the evening, Toprol-XL 12.5 mg daily, Crestor 40 mg every 48 hours, Aldactone 25 mg daily. Cardiac catheterization performed 12/10/2021 revealed normal EF, FLAGGER of the RCA, patent stent in the left circumflex. Echocardiogram performed on 12/23/2022 in the office revealed EF of 40% with large hypokinetic areas in the inferior lateral, inferior and inferior septal moore. Trace aortic regurgitation. Aortic valve is calcified. Mild to moderate mitral regurgitation. Mitral valve is calcified. Myxomatous mitral valve. Mild tricuspid regurgitation. Normal pulmonary artery systolic pressure at 31 mmHg. Review Of Systems: At the time of my exam: CONSTITUTIONAL: Denies fever or chills. HEENT: Denies blurred vision, vision changes, or eye pain. Denies hemoptysis CARDIOVASCULAR: Denies chest pain. Denies orthopnea. Denies PND. Denies palpitations RESPIRATORY: Denies shortness of breath. GASTROINTESTINAL: Denies abdominal pain. Denies nausea or vomiting. HEMATOLOGIC: Denies bleeding disorders. GENITOURINARY: Denies any blood in urine. SKIN: Denies pruitis. Denies rash. Physical examination: Gen: This is a [ ] VS: reviewed HEENT: Head is atraumatic, normocephalic. Pupils equal, round. Sclerae is anicteric. NECK: Supple. No JVD. LUNGS: Clear to auscultation. No wheezes or rhonchi. No intercostal retractions. HEART: Regular rate and rhythm. No murmur. ABDOMEN: Soft No tenderness. EXTREMITIES: No pedal edema. No calf tenderness. NEUROLOGICAL: Patient is awake, alert and oriented x3. Assessment: Chest pain, acute coronary syndrome ruled out Coronary artery disease with prior stenting of the left circumflex and known chronic total occlusion of the RCA Ischemic cardiomyopathy Hypertension Dyslipidemia Valvular heart disease with mitral regurgitation Tobacco use and dependence PAD Plan: Resume patient's home cardiac medications Patient will be scheduled for cardiac catheterization today with Dr. Soto Obtain 2-D echocardiogram and Doppler study to assess cardiac structure and function Smoking cessation Further recommendations to follow based upon clinical course Thank you kindly for this consultation. Nurse practitioner note has been reviewed, I agree with documented findings and plan of care. Patient was seen and examined. Past Medical History Past Medical History: Chest Pain / Angina, GERD/Reflux, Hyperlipidemia, H ypertension, Liver Disease, Myocardial Infarction ([place]), Osteoarthritis (OA), Pneumonia, Thyroid Disorder Additional Past Medical History / Comment(s): Hx kidney stones. SOB w/exertion on and off for last few months. 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 NE's - unknown when. Fatty liver. Bladder stone. Hx migraines, none in a while. 3 thyroid nodules. Last Myocardial Infarction Date:: Unknown History of Any Multi-Drug Resistant Organisms: None Reported Past Surgical History: Back Surgery, Cholecystectomy, Heart Catheterization With Stent, Hernia Repair, Orthopedic Surgery Additional Past Surgical History / Comment(s): Neck surgery X3, right hydrocele repair, bilateral inguinal hernia repair, carpel tunnel repair bilaterally. Past Anesthesia/Blood Transfusion Reactions: Postoperative Nausea & Vomiting (PONV) Date of Last Stent Placement:: Unknown Past Psychological History: No Psychological Hx Reported Smoking Status: Current every day smoker, Heavy tobacco smoker Past Alcohol Use History: Rare Past Drug Use History: None Reported - Past Family History Mother Family Medical History: Cancer, Congestive Heart Failure (CHF), Coronary Artery Disease (CAD) Additional Family Medical History / Comment(s): Bypass surgery, low blood sugar, skin cancer. Father Family Medical History: Coronary Artery Disease (CAD), Deep Vein Thrombosis (DVT) Additional Family Medical History / Comment(s): Bypass surgery. Medications and Allergies Home Medications Medication Instructions Recorded Confirmed Type Aspirin [Children's Aspirin] 81 mg PO DAILY 04/12/20 10/24/23 History Losartan [Cozaar] 25 mg PO DAILY 04/12/20 10/24/23 History Losartan [Cozaar] 50 mg PO HS 04/12/20 10/24/23 History Clopidogrel [Plavix] 75 mg PO DAILY #90 tab 04/20/20 10/24/23 Rx Metoprolol Succinate (ER) [Toprol 12.5 mg PO DAILY 12/08/21 10/24/23 History XL] Multivitamins, Thera [Multivitamin 1 tab PO DAILY 12/08/21 10/24/23 History (formulary)] Rosuvastatin Calcium [Crestor] 40 mg PO Q48H 12/08/21 10/24/23 History Pantoprazole [Protonix] 40 mg PO DAILY 04/05/23 10/24/23 History Spironolactone 25 mg PO DAILY 04/05/23 10/24/23 History Acetaminophen Tab [Tylenol Tab] 1,000 mg PO Q6HR PRN 10/24/23 10/24/23 History Cholecalciferol (Vitamin D3) 50 mcg PO DAILY 10/24/23 10/24/23 History [Vitamin D3 (50 Mcg = 2000 Iu)] Cyanocobalamin (Vitamin B-12) 1,000 mcg PO DAILY 10/24/23 10/24/23 History [Vitamin B-12] Docusate [Colace] 100 mg PO DAILY 10/24/23 10/24/23 History Zinc Gluconate [Zinc] 50 mg PO Q48H 10/24/23 10/24/23 History Allergies Allergy/AdvReac Type Severity Reaction Status Date / Time ANGEL LUIS Inhibitors Allergy Unknown Verified 10/24/23 16:38 naproxen [From Naprosyn] Allergy Unknown Verified 10/24/23 16:38 Penicillins Allergy Unknown Verified 10/24/23 16:38 atorvastatin [From Lipitor] AdvReac Myalgia Verified 10/25/23 10:13 Physical Exam Vitals: Vital Signs Temp Pulse Pulse Resp BP BP Pulse Ox 10/25/23 02:55 98.0 F 72 16 109/66 96 10/24/23 20:00 78 18 10/24/23 18:18 98.0 F 78 18 126/74 98 10/24/23 16:55 81 18 130/76 96 10/24/23 14:40 98.2 F 91 18 147/80 99 Intake and Output 10/24/23 10/25/23 10/25/23 22:59 06:59 14:59 Other: # Voids 2 2 Weight 72.575 kg Results 10/25/23 06:28 10/25/23 06:28 Cardiac Enzymes 10/24/23 10/24/23 10/24/23 Range/Units 14:55 14:55 17:54 AST 34 (17-59) U/L Troponin I 0.015 0.019 (0.000-0.034) ng/mL 10/24/23 Range/Units 21:58 AST (17-59) U/L Troponin I 0.018 (0.000-0.034) ng/mL Coagulation 10/24/23 Range/Units 14:55 PT 10.3 (10.0-12.5) sec APTT 27.1 (22.0-30.0) sec CBC 10/24/23 10/25/23 Range/Units 14:55 06:28 WBC 16.7 H 10.5 (3.8-10.6) k/uL RBC 4.78 4.85 (4.30-5.90) m/uL Hgb 14.4 14.8 (13.0-17.5) gm/dL Hct 43.4 44.0 (39.0-53.0) % Plt Count 305 259 (150-450) k/uL Comprehensive Metabolic Panel 10/24/23 Range/Units 14:55 Sodium 140 (137-145) mmol/L Potassium 4.1 (3.5-5.1) mmol/L Chloride 107 (98-107) mmol/L Carbon Dioxide 27 (22-30) mmol/L BUN 9 (9-20) mg/dL Creatinine 0.74 (0.66-1.25) mg/dL Glucose 101 H (74-99) mg/dL Calcium 9.8 (8.4-10.2) mg/dL AST 34 (17-59) U/L ALT 23 (4-49) U/L Alkaline Phosphatase 81 (38-126) U/L Total Protein 7.3 (6.3-8.2) g/dL Albumin 4.5 (3.5-5.0) g/dL Current Medications Generic Name Dose Route Start Last Admin Trade Name Freq PRN Reason Stop Dose Admin Aspirin 81 mg 10/25/23 09:00 Aspirin 81 Mg PO DAILY [facility] Atorvastatin Calcium 80 mg 10/24/23 18:00 10/24/23 18:32 Atorvastatin 80 Mg Tab PO Not Given Q48H [facility] Clopidogrel Bisulfate 75 mg 10/25/23 09:00 Clopidogrel 75 Mg Tab PO DAILY [facility] Docusate Sodium 100 mg 10/25/23 09:00 Docusate 100 Mg Cap PO DAILY [facility] Enoxaparin Sodium 40 mg 10/25/23 09:00 Enoxaparin 40 Mg/0.4 Ml Syringe SQ DAILY [facility] Losartan Potassium 25 mg 10/25/23 09:00 Losartan 25 Mg Tab PO DAILY [facility] Losartan Potassium 50 mg 10/24/23 21:00 10/24/23 21:00 Losartan 50 Mg Tab PO 50 mg HS SHANNON Administration Metoprolol Succinate 12.5 mg 10/25/23 09:00 Metoprolol Succinate (Er) 25 Mg Tab.Er.24h PO DAILY [facility] Morphine Sulfate 4 mg 10/24/23 16:26 10/25/23 06:11 Morphine Sulfate 4 Mg/Ml Syringe IV 4 mg Q4HR PRN Administration Severe Pain (Scale 7 to 10) Naloxone HCl 0.2 mg 10/24/23 16:26 Naloxone 0.4 Mg/Ml 1 Ml Vial IV Q2M PRN Opioid Reversal Nicotine 1 patch 10/25/23 09:00 Nicotine 21mg/24hr Patch TRANSDERM DAILY [facility]ANNON Nitroglycerin 0.4 mg 10/24/23 16:28 Nitroglycerin Sl Tabs 0.4 Mg Tab SUBLINGUAL Q5M PRN Chest Pain Pantoprazole Sodium 40 mg 10/25/23 07:30 10/25/23 06:11 Pantoprazole 40 Mg Tablet PO 40 mg DAILY@0730 SHANNON Administration Spironolactone 25 mg 10/25/23 09:00 Spironolactone 25 Mg Tab PO DAILY SHANNON Intake and Output 10/24/23 10/25/23 10/25/23 22:59 06:59 14:59 Other: # Voids 2 2 Weight 72.575 kg 10/25/23 06:28 10/24/23 14:55
[2023-10-25] MEDS ORDERED: LIDOCAINE 1% INJ 10MG/ML (20 ML MDV) ONE (10:43)
[2023-10-25] MEDS ORDERED: VERAPAMIL 2.5 MG/ML 2 ML AMP ONE (10:43)
[2023-10-25] MEDS ORDERED: HEPARIN SODIUM 1,000 UN/ML (10ML VL) ONE (10:43)
[2023-10-25] MEDS ORDERED: ONDANSETRON 4 MG/2 ML VIAL ONE (10:55)
[2023-10-25] MEDS: HYDROmorphone 0.5 MG/0.5 ML SYRINGE IVP ONE (11:01)
[2023-10-25] MEDS: LIDOCAINE 1% INJ 10MG/ML (30 ML VIAL-PF) SQ ONE (11:01)
[2023-10-25] MEDS: VERAPAMIL SYRINGE (5 MG/10 ML) INTRAARTER ONE (11:01)
[2023-10-25] MEDS: MIDAZOLAM 2 MG/2 ML VIAL IVP ONE (11:01)
[2023-10-25] MEDS: SODIUM CHLORIDE 0.9% 500 ML 500 ML IV ONE (11:02)
[2023-10-25] MEDS: HEPARIN SODIUM 1,000 UN/ML (10ML VL) IVP ONE (11:02)
[2023-10-25] MEDS: IOPAMIDOL-370 100ML BTL INJ ONE (11:07)
[2023-10-25] MEDS ORDERED: RX INFO: IV CONTRAST WAS GIVEN 1 EACH MISC MISCELLANE PRN (11:10)
--- NOTE | 2023-10-25 11:15 | P.PCN ---
Date of Procedure: 10/25/23 Operative Findings: CARDIAC CATHETERIZATION PERFORMING PHYSICIAN: Jeremiah Soto MD, RPVI PROCEDURE PERFORMED: 1. Selective right and left coronary angiogram 2. Left heart catheterization 3. Ultrasound-guided access of the right radial artery INDICATION: Chest discomfort concerning for angina and is 67-year-old gentleman who is known to have coronary artery disease with prior stenting of the left circumflex and known chronic total occlusion of the RCA COMPLICATION: None APPROACH: Right radial artery LEVEL OF SEDATION: Moderate with a sedation length of 11 minutes PROCEDURE DESCRIPTION: After obtaining an informed consent, the patient was brought to cardiac chemistry laboratory technician. Local anesthesia was performed using lidocaine subcutaneously. The right radial artery was cannulated using micropuncture technique under ultrasound guidance and the micropuncture wire passed easily then placed a 6-[place]grin sheath over the wire. Subsequently the sheath was flushed and secured. Following that, 2 mg of verapamil along with 5000 unit heparin were given. Selective right and left coronary angiogram using a 6-[place] JR4 and JL 3.5 catheters. Following that we did left heart catheterization using 6-Montenegrin pigtail catheter. The procedure was completed there was no complication. SELECTIVE CORONARY ANGIOGRAM: The right coronary artery: Large caliber vessel and dominant vessel. The RCA is chronically occluded in the mid to distal portion and fills by collateral from the left coronary system. This is a known finding from before. Left main: Not accessed. The left circumflex is originating from the right coronary artery The left circumflex: Large caliber vessel. The left circumflex is originating from the right coronary artery. The left circumflex is a stented and the stent is patent. The ramus intermedius: Appears to be angiographically normal The left anterior descending artery: Large-caliber vessel was mild disease only. The LAD has mild disease only. No high-grade stenosis was identified HEMODYNAMICS: The LVEDP was about 8 mmHg was no significant gradient across aortic valve CONCLUSION: 1. 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 Chronic total occlusion of the RCA which is a known finding from before 3. Normal left-sided filling pressure POSTPROCEDURE MANAGEMENT: Giving the finding which has not changed compared to before maximize medical treatment was advised at this point including risk factors modification and smoking cessation
--- NOTE | 2023-10-25 11:24 | P.DS ---
Providers Date of admission: 10/24/23 16:28 Expected date of discharge: 10/25/23 Attending physician: Emma Higginbotham MD Consults: 10/24/23 16:26 Consult Physician Urgent Consulting Provider: [facility] Consult Reason/Comments: acute chest pain, hx ascad Do you want consulting provider notified?: Yes Primary care physician: [facility] Course: 67 year old M with PMH of CAD post stent, GERD, HLDA, HTN, smoker. He presents to the ED for chest pain that started while washing dishes around 12PM. Left sided, described as pins and needles later turned into a dull pain. Pain was non radiating. Not exacerbated with movement or deep inspiration. Denies any shortness of breath, diaphoresis or palpitations. Symptoms persisted which prompted him to come to the ED. Smokes 3 pack of cigarettes daily. Cardiac cath done in 2019 showed chronic total occlusion RVA with collaterals, 80% LCx, 60-70% LAD, status post stenting of the LCx. In the ED he underwent extensive evaluation. BP 147/80, HR 91, T 98.2F, 99% on RA. CBC WBC 16.7. Coag panel within normal limits. CMP glu 101. Troponin 0.015. BNP 127. CXR no acute process. EKG sinus rhythm with IV conduction delay. Patient is admitted for chest pain, rule out ACS, Cardiology consultation. Troponins were trended 0.019, 0.018. Cardiology recommended cardiac cath. Cath showed patent LCx stent, chronic total occlusion of the RCA, mild disease of the LAD. 10/25 Patient was seen and examined. Chest pain persistent throughout the night. No nausea or vomiting. No diaphoresis, shortness of breath or palpitations. General: non toxic, no distress, appears at stated age Derm: warm, dry Head: atraumatic, normocephalic Eyes: EOMI, no lid lag, anicteric sclera Cardiovascular: S1S2 reg, no murmur Lungs: Decreased BS bilateral, no rhonchi, no rales , no accessory muscle use Ext: no gross muscle atrophy, no edema, no contractures Neuro: no focal neuro deficits Psych: Alert, oriented, appropriate affect Discharge Diagnosis: Chest pain: ACS ruled out. Coronary cath as above. ASA 81 mg PO QD. Crestor 40 mg PO Q48H. Metoprolol 12.5 mg PO QD. Leukocytosis: Chronic per patient. Follows Dr. Gregg. Smoker: Nicotine patch 21 mg transdermal Q24H. Encouraged to quit. Chronic conditions: GERD, HLDA, HTN This complex discharge took 35 minutes to complete. Patient Condition at Discharge: Stable Plan - Discharge Summary Discharge Rx Participant: No New Discharge Prescriptions: Continue Losartan [Cozaar] 50 mg PO HS Losartan [Cozaar] 25 mg PO DAILY Aspirin [Children's Aspirin] 81 mg PO DAILY Clopidogrel [Plavix] 75 mg PO DAILY #90 tab Pantoprazole [Protonix] 40 mg PO DAILY Spironolactone 25 mg PO DAILY Acetaminophen Tab [Tylenol] 1,000 mg PO Q6HR PRN PRN Reason: Pain Zinc Gluconate [Zinc] 50 mg PO Q48H Docusate [Colace] 100 mg PO DAILY Rosuvastatin Calcium [Crestor] 40 mg PO Q48H Multivitamins, Thera [Multivitamin (formulary)] 1 tab PO DAILY Metoprolol Succinate (ER) [Toprol XL] 12.5 mg PO DAILY Cyanocobalamin (Vitamin B-12) [Vitamin B-12] 1,000 mcg PO DAILY Cholecalciferol (Vitamin D3) [Vitamin D3 (50 Mcg = 2000 Iu)] 50 mcg PO DAILY Discharge Medication List Aspirin [Children's Aspirin] 81 mg PO DAILY 04/12/20 [History] Losartan [Cozaar] 25 mg PO DAILY 04/12/20 [History] Losartan [Cozaar] 50 mg PO HS 04/12/20 [History] Clopidogrel [Plavix] 75 mg PO DAILY #90 tab 04/20/20 [Rx] Metoprolol Succinate (ER) [Toprol XL] 12.5 mg PO DAILY 12/08/21 [History] Multivitamins, Thera [Multivitamin (formulary)] 1 tab PO DAILY 12/08/21 [History] Rosuvastatin Calcium [Crestor] 40 mg PO Q48H 12/08/21 [History] Pantoprazole [Protonix] 40 mg PO DAILY 04/05/23 [History] Spironolactone 25 mg PO DAILY 04/05/23 [History] Acetaminophen Tab [Tylenol] 1,000 mg PO Q6HR PRN 10/24/23 [History] Cholecalciferol (Vitamin D3) [Vitamin D3 (50 Mcg = 2000 Iu)] 50 mcg PO DAILY 10/24/23 [History] Cyanocobalamin (Vitamin B-12) [Vitamin B-12] 1,000 mcg PO DAILY 10/24/23 [History] Docusate [Colace] 100 mg PO DAILY 10/24/23 [History] Zinc Gluconate [Zinc] 50 mg PO Q48H 10/24/23 [History] Follow up Appointment(s)/Referral(s): Jeremiah Soto MD [STAFF PHYSICIAN] - 1 Week Vasile Hopkins DO [Primary Care Provider] - 1-2 days Discharge Disposition: HOME SELF-CARE
[2023-10-25] MEDS: SODIUM CHLORIDE 0.9% 1,000 ML IV SCH (11:46)
[2023-10-25 12:45] VITALS: TEMP 97.9
[2023-10-25 15:47] VITALS: BP 108/70; PULSE 78
--- NOTE | 2023-10-25 17:49 | CA ---
Transthoracic Echo Report Name: Gary Lerma Age: 67 Gender: M : 1955 Exam Date: 10/25/2023 15:11 Exam Location: [facility] Ht (in): 66 Wt (lb): 160 Ordering Physician: Emma Higginbotham MD Attending/Referring Phys: [employer]er Ce Crawford RDCS Procedure CPT: Indications: CP Cardiac Hx: Technical Quality: Fair Contrast 1: Total Dose (mL): Contrast 2: Total Dose (mL): MEASUREMENTS (Male / Female) Normal Values 2D ECHO LV Diastolic Diameter PLAX 4.5 cm 4.2 - 5.9 / 3.9 - 5.3 cm LV Systolic Diameter PLAX 3.4 cm IVS Diastolic Thickness 1.7 cm 0.6 - 1.0 / 0.6 - 0.9 cm LVPW Diastolic Thickness 1.6 cm 0.6 - 1.0 / 0.6 - 0.9 cm LV Relative Wall Thickness 0.7 RV Internal Dim ED PLAX 2.8 cm LA Volume 35.3 cm??? 18 - 58 / 22 - 52 cm??? LA Volume Index 19.1 cm???/m??? 16 - 28 cm???/m??? M-MODE Aortic Root Diameter MM 3.5 cm LA Systolic Diameter MM 2.7 cm LA Ao Ratio MM 0.7 AV Cusp Separation MM 1.7 cm DOPPLER AV Peak Velocity 116.9 cm/s AV Peak Gradient 5.5 mmHg AV Mean Velocity 73.9 cm/s AV Mean Gradient 2.6 mmHg AV Velocity Time Integral 20.0 cm LVOT Peak Velocity 106.8 cm/s LVOT Peak Gradient 4.6 mmHg LVOT Velocity Time Integral 22.6 cm Mitral E Point Velocity 79.1 cm/s Mitral A Point Velocity 93.8 cm/s Mitral E to A Ratio 0.8 MV E' Velocity 6.8 cm/s Mitral E to MV E' Ratio 11.7 FINDINGS Left Ventricle Moderately increased left ventricular wall thickness. Left ventricular cavity size normal. Hypokinetic inferior wall. Hypokinetic lateral wall. Left ventricular ejection fraction is estimated at 40-45 %. Right Ventricle Normal right ventricular size and function. Right ventricular systolic pressure within normal limits. Right Atrium Normal right atrial size. Left Atrium Normal left atrial size. Mitral Valve Structurally normal mitral valve. Mitral valve thickened. Mild mitral annular calcification. Mild mitral regurgitation. Aortic Valve Trileaflet aortic valve. No aortic valve stenosis or regurgitation.aortic valve sclerosis. Tricuspid Valve Structurally normal tricuspid valve. Mild tricuspid regurgitation. Pulmonic Valve Pulmonic valve not well visualized. Pericardium No pericardial effusion. Aorta Normal size aortic root and proximal ascending aorta. CONCLUSIONS 1. Moderately impaired left ventricular systolic function with segmental wall motion abnormality 2. Mild mitral and tricuspid regurgitation Previewed by: Dr. Sol Red MD (Electronically Signed) Final Date: 25 October 2023 17:48
[2023-10-26] MEDS ORDERED: HEPARIN SODIUM,PORCINE 10,000 UNIT in SODIUM CHLORIDE 0.9% 1,000 ML IRRIGATION PRN (07:00)
[2023-10-26] MEDS ORDERED: HEPARIN SODIUM,PORCINE (1 ML) 2,500 UNIT in SODIUM CHLORIDE 0.9% 250 ML IRRIGATION PRN (07:00)
== END 2023-10-25 15:55 | disposition home or self-care (01) ==
LOC: EC 14:39 → 6NMEDSUR 16:28
PROVIDERS: ADMIT Family Medicine; ATTEND Family Medicine
DX: R07.89 Other chest pain (principal); I25.10 Atherosclerotic heart disease of native coronary artery without angina pectoris; I25.82 Chronic total occlusion of coronary artery; I25.5 Ischemic cardiomyopathy; I08.1 Rheumatic disorders of both mitral and tricuspid valves; I10 Essential (primary) hypertension; E78.5 Hyperlipidemia, unspecified; M79.602 Pain in left arm; T46.3X6A Underdosing of coronary vasodilators, initial encounter; Z91.128 Patient's intentional underdosing of medication regimen for other reason; D72.829 Elevated white blood cell count, unspecified; K21.9 Gastro-esophageal reflux disease without esophagitis; I45.9 Conduction disorder, unspecified; I73.9 Peripheral vascular disease, unspecified; F17.210 Nicotine dependence, cigarettes, uncomplicated; Z79.82 Long term (current) use of aspirin; Z79.02 Long term (current) use of antithrombotics/antiplatelets; Z79.899 Other long term (current) drug therapy; Z88.0 Allergy status to penicillin; Z88.6 Allergy status to analgesic agent; Z88.8 Allergy status to other drugs, medicaments and biological substances; Z95.5 Presence of coronary angioplasty implant and graft
CPT/HCPCS: 96376 ×2; 96374; 99285; 36415; 93005; 93306; 93458; 76937; 80053; 80048; 83690; 83735; 84484; 85025 ×2; 85610; 85730; 71046; G0378 ×2; C1769; C1894; S4990 ×2; J2250; J2270 ×2; J2001; J1644; J1170; Q9967

== ENCOUNTER → 2024-01-04 | Outpatient (CLI) | payer MEDICARE ==
[2024-01-04 14:54] LABS: Basophils # (A) 0.03 X 10*3/uL (0.00-0.10); Basophils % (A) 0.2 %; Eosinophils # (A) 0.04 X 10*3/uL (0.04-0.35); Eosinophils % (A) 0.3 %; HCT 45.7 % (39.6-50.0); HGB 14.8 g/dL (13.0-17.0); Lymphocytes # (A) 2.12 X 10*3/uL (0.90-5.00); Lymphocytes % (A) 17.2 %; MCH 29.2 pg (27.0-32.0); MCHC 32.4 g/dL (32.0-37.0); MCV 90.3 FL (80.0-97.0); Mean Platelet Volume 10.3 FL (9.5-12.2); Monocytes # (A) 0.87 X 10*3/uL (0.20-1.00); Monocytes % (A) 7.1 %; NRBC Per 100 WBC 0 X 10*3/uL (0.00-0.01); Neutrophils % (A) 74.9 %; Platelet Count 305 X 10*3/uL (140-440); RBC 5.06 X 10*6/uL (4.40-5.60)
[2024-01-04 16:14] LABS: ALT 18 U/L (10-49); AST 26 U/L (14-35); Albumin 4.5 g/dL (3.8-4.9); Albumin/Globulin Ratio 1.67 Ratio (1.60-3.17); Alkaline Phosphatase 85 U/L (41-126); Blood Urea Nitrogen 8.4 mg/dL (9.0-27.0); Carbon Dioxide 26.1 mmol/L (21.6-31.8); Chloride 104 mmol/L (96-109); Chol/HDL Ratio 3.76 Ratio; Globulin 2.7 g/dL (1.6-3.3); Glucose 111 mg/dL (70-110); LDL Cholesterol,Calculated 71.6 mg/dL (0.0-131.0); Magnesium 2.2 mg/dL (1.5-2.4); PSA Annual Screen 0.376 ng/mL (0.000-4.000); Potassium 4.7 mmol/L (3.5-5.5); Sodium 141 mmol/L (135-145); Total Bilirubin 0.3 mg/dL (0.3-1.2); Total Protein 7.2 g/dL (6.2-8.2); Uric Acid 4.3 mg/dL (3.7-8.7)
== END | disposition home or self-care (01) ==
LOC: LABWHC1 10:07
PROVIDERS: ATTEND Internal Medicine
DX: Z12.5 Encounter for screening for malignant neoplasm of prostate (principal); I10 Essential (primary) hypertension; N20.0 Calculus of kidney
CPT/HCPCS: 84439; 80061; 80053; 84443; 83735; 84550; 85025; 36415; G0103

== ENCOUNTER → 2024-01-19 | Outpatient (CLI) | payer MEDICARE ==
--- NOTE | 2024-01-19 14:52 | CTL ---
EXAMINATION TYPE: CT Low Dose Lung DATE OF EXAM ORDERED: 01/19/2024 HISTORY: . Low Dose CT Lung Screening CT DLP: 82.[address] CTDI: 2.2 mGy IV CONTRAST USED: None. SCREENING VISIT: 2 COMPARISON: 12/25/2022 TECHNIQUE: Low dose computed tomography scan was performed through the chest at 1 millimeter thick se ctions and reconstructed images in the coronal plane at [address] DIAGNOSTIC QUALITY: Satisfactory FINDINGS: LUNG NODULES: No pulmonary nodules greater than 5 mm are evident. No new nodules are seen. LUNGS: COPD: Severity: Mild Fibrosis: Severity:None Lymph nodes: None Other findings: None RIGHT PLEURAL SPACE: Effusion: None Calcification: None Thickening: None Pneumothorax: None LEFT PLEURAL SPACE: Effusion: None Calcification: None Thickening: None Pneumothorax: None HEART: Heart Size: Mildly enlarged Coronary calcification: Mild Pericardial effusion: None OTHER FINDINGS: Upper abdomen: No significant abnormality Bony thorax: Degenerative changes Supraclavicular region: No significant abnormalityOther: No significant abnormalityI IMPRESSION: Stable chest FOLLOW UP CT CHEST RECOMMENDATION: Follow-up screening in one year CT LUNG RAD: LUNG RAD CATEGORY 2 benign appearance in the behavior
--- NOTE | 2024-01-19 17:53 | US ---
EXAMINATION TYPE: US thyroid st tissue head/neck DATE OF EXAM: 01/19/2024 COMPARISON: Thyroid ultrasound 01/21/2023 CLINICAL INDICATION: Male, 68 years old with history of E05.90 THYROTOXICOSIS, UNSP WITHOUT THYROTOXI C CRI; Thyroid nodule GLAND SIZE: Right Lobe: 4.8 x 2.3 x 1.9 cm Overall Parenchyma: homogeneous Left Lobe: 4.3 x 2.4 x 1.9 cm Overall Parenchyma: homogeneous Isthmus Thickness: .5 cm NODULES RIGHT: # of nodules measured on right: 1 1. .5 X .5 x .7 cm, lower , cystic or almost completely cystic, anechoic nodule, which is wider th an tall, with smooth margins, without echogenic foci. TR 1. Prior size: .9 x .7 x .8 cm LEFT: # of nodules measured on left: 1 1. .6 X .4 x .6 cm, upper , solid or almost completely solid, hypoechoic nodule, which is wider nichelle n tall, with smooth margins, without echogenic foci. TR 4. Prior size: .7 x .4 x .7 cm ISTHMUS: # of nodules measured in the isthmus: 0 Bilateral neck scanned, no evidence of lymphadenopathy. IMPRESSION: Stable to marginal decrease in size of subcentimeter thyroid nodules from prior examination. No new o r enlarging thyroid nodules. According to ACR TI-RADS, no follow-up is recommended.
[2024-01-19 19:32] LABS: T4, Free (Free Thyroxine) 1.28 ng/dL (0.80-1.80)
[2024-01-19 23:08] LABS: Thyroid Peroxidase Antibodies <9.0 U/mL (0.0-33.0)
== END | disposition home or self-care (01) ==
LOC: RADUSWWP 11:19
PROVIDERS: ATTEND Internal Medicine
DX: Z12.2 Encounter for screening for malignant neoplasm of respiratory organs (principal); E04.2 Nontoxic multinodular goiter; E05.90 Thyrotoxicosis, unspecified without thyrotoxic crisis or storm; F17.210 Nicotine dependence, cigarettes, uncomplicated
CPT/HCPCS: 71271; 76536; 83036; 84432; 84439; 84443; 84445; 84481; 86376